=== PATIENT | female | born 1955 | race Caucasian/White ===

== ENCOUNTER 2021-04-01 07:12 | Outpatient (REF) | payer OTHER, SELFPAY ==
[2021-04-01 08:05] LABS: MANUAL DIFF FLAG NO
[2021-04-01 08:16] LABS: Basophils Percent Auto 0.8 % (0-2); Eosinophils Absolute Auto 0.2 X10*3/uL (0.0-0.4); Eosinophils Percent Auto 3.4 % (0-4); Hematocrit 43.8 % (37-47); Hemoglobin 14.9 g/dl (12.0-16.0); Imm Gran Abs Auto 0.01 X10*3/uL (0.00-0.03); Imm Gran Pct Auto 0.2 % (0.0-0.4); Lymphocytes Absolute Auto 1.3 X10*3/uL (1.2-4.9); Lymphocytes Percent Auto 25.8 % (20-40); Mean Corpuscular Hemoglobin 30.3 pg (27.0-33.0); Mean Platelet Volume 9.8 fL (9.4-12.3); Monocytes Absolute Auto 0.5 X10*3/uL (0.1-1.2); Monocytes Percent Auto 9.3 % (2-11); Neutrophils Percent Auto 60.5 % (45-73); Platelet Count 247 X10*3/uL (160-400); Red Blood Count 4.92 X10*6/uL (4.20-5.50); Red Cell Distribution Width 12.2 % (11.0-16.0)
[2021-04-01 08:27] LABS: Alanine Aminotransferase 24 U/L (0-31); Albumin Level 4.6 g/dL (3.5-5.0); Alkaline Phosphatase 47 U/L (39-117); Anion Gap 13 (12-20); Aspartate Amino Transferase 25 U/L (5-31); Bilirubin Total 0.7 mg/dL (0.0-1.0); Blood Urea Nitrogen 14 mg/dL (9-16); Calcium 9.2 mg/dL (8.4-10.2); Carbon Dioxide 24 mmol/L (22-29); Chloride 107 mmol/L (96-108); Cholesterol 246 mg/dL; Estimated Glomerular Filt Rate > 60; Glucose Fasting 115 mg/dL (60-99); HDL Cholesterol 54 mg/dL; LDL Cholesterol Calculated 162 mg/dl; Potassium 4.6 mmol/L (3.3-5.1); Sodium 139 mmol/L (135-145); Total Protein 7.5 g/dL (6.5-8.0); Triglycerides 150 mg/dL
[2021-04-01 08:38] LABS: Glucose Urine UA NEG (NEG); Leukocyte Esterase Urine 2+ (NEG); Nitrite Urine NEG (NEG); PH 6.5 (5.0-8.0); Urine Blood 1+ (NEG); Urine Ketones NEG (NEG); Urine Protein NEG (NEG-TRACE)
[2021-04-01 08:42] LABS: Appearance Urine HAZY; Color Urine YELLOW
[2021-04-01 08:53] LABS: Thyroid Stimulating Hormone 1.63 uIU/mL (0.32-4.0); Vitamin D 25-OH Total 21.3 ng/mL (>30)
[2021-04-01 08:57] LABS: Bacteria Urine 1+ /LPF; Squamous Epithelial Cell Urine 4+ /LPF
== END 2021-04-01 07:13 | disposition home or self-care (01) ==
LOC: HO.LAB 07:12
PROVIDERS: PCP Internal Medicine; Visit Provider Internal Medicine
DX: I10 Essential (primary) hypertension (principal)
CPT/HCPCS: 36415; 80053; 80061; 81001; 82306; 84443; 85025

== ENCOUNTER 2021-10-21 07:34 | Outpatient (REF) | payer OTHER, SELFPAY ==
[2021-10-21 07:54] LABS: MANUAL DIFF FLAG NO
[2021-10-21 08:14] LABS: Basophils Absolute Auto 0.1 X10*3/uL (0.0-0.2); Basophils Percent Auto 1.3 % (0-2); Eosinophils Absolute Auto 0.1 X10*3/uL (0.0-0.4); Eosinophils Percent Auto 3.1 % (0-4); Hemoglobin 14.5 g/dl (12.0-16.0); Imm Gran Abs Auto 0.01 X10*3/uL (0.00-0.03); Imm Gran Pct Auto 0.2 % (0.0-0.4); Lymphocytes Absolute Auto 1.6 X10*3/uL (1.2-4.9); Lymphocytes Percent Auto 35.4 % (20-40); Mean Corpuscular HGB Conc 34.5 g/dl (31.0-35.0); Mean Corpuscular Hemoglobin 30.9 pg (27.0-33.0); Mean Corpuscular Volume 89.4 fL (80.0-98.0); Mean Platelet Volume 9.3 fL (9.4-12.3); Monocytes Absolute Auto 0.5 X10*3/uL (0.1-1.2); Monocytes Percent Auto 9.9 % (2-11); Neutrophils Absolute Auto 2.3 x10*3/uL (2.0-8.3); Neutrophils Percent Auto 50.1 % (45-73); Platelet Count 258 X10*3/uL (160-400); Red Cell Distribution Width 11.9 % (11.0-16.0); White Blood Count 4.6 X10*3/uL (4.8-10.8)
[2021-10-21 08:37] LABS: Alanine Aminotransferase 31 U/L (0-31); Albumin Level 4.6 g/dL (3.5-5.0); Alkaline Phosphatase 48 U/L (39-117); Anion Gap 13 (12-20); Aspartate Amino Transferase 23 U/L (5-31); Bilirubin Total 0.6 mg/dL (0.0-1.0); Blood Urea Nitrogen 12 mg/dL (9-16); Calcium 9.3 mg/dL (8.4-10.2); Carbon Dioxide 23 mmol/L (22-29); Chloride 107 mmol/L (96-108); Cholesterol 262 mg/dL; Estimated Glomerular Filt Rate > 60; Glucose Fasting 114 mg/dL (60-99); HDL Cholesterol 66 mg/dL; LDL Cholesterol Calculated 170 mg/dl; Potassium 4.1 mmol/L (3.3-5.1); Sodium 139 mmol/L (135-145); Total Protein 7.4 g/dL (6.5-8.0); Triglycerides 134 mg/dL
[2021-10-21 09:00] LABS: Vitamin D 25-OH Total 21.6 ng/mL (>30)
[2021-10-21 09:01] LABS: Appearance Urine CLEAR; Color Urine YELLOW; Glucose Urine UA NEG (NEG); Leukocyte Esterase Urine 1+ (NEG); Nitrite Urine NEG (NEG); Specific Gravity - Urine <= 1.005 (1.005-1.025); Urine Blood NEG (NEG); Urine Ketones NEG (NEG); Urine Protein NEG (NEG-TRACE)
[2021-10-21 09:13] LABS: Bacteria Urine TRACE /LPF; RBC Urine 0-2 /HPF (0); Squamous Epithelial Cell Urine 2+ /LPF; WBC Urine 0-2 /HPF (0-4)
== END 2021-10-21 07:35 | disposition home or self-care (01) ==
LOC: HO.LAB 07:34
PROVIDERS: PCP Internal Medicine; Visit Provider Internal Medicine
DX: I10 Essential (primary) hypertension (principal); E78.00 Pure hypercholesterolemia, unspecified
CPT/HCPCS: 36415; 80053; 80061; 81001; 81003; 82306; 85025

== ENCOUNTER 2022-01-15 08:02 | Outpatient (REF) | payer OTHER, SELFPAY ==
--- NOTE | ~2022-01-15 | MM_ITS ---
EXAMINATION: MM SCREENING DIGITAL BREAST TOMOSYNTHESIS, BILATERAL CLINICAL INFORMATION: Screening. Asymptomatic. The lifetime risk of breast cancer based on the Tyrer-Cuzick Model is 6%. COMPARISON: Mammography: 06/05/2019, 05/29/2019, 05/27/2018 TECHNIQUE: Digital breast tomosynthesis is performed in both the craniocaudal and mediolateral oblique views along with computer-aided detection (CAD). Synthesized 2D images are generated from the tomosynthesis. FINDINGS: The breasts are heterogeneously dense, which may obscure small masses (ACR BI-RADS breast composition Category c). There are no significant masses, abnormal calcifications, or other abnormalities. Parenchymal pattern is similar to prior studies. There is no developing density or architectural abnormality. The axilla and skin contours are unremarkable. No significant changes. MM/MM tomosynthesis screening BI IMPRESSION: No mammographic evidence of malignancy. ASSESSMENT: BI-RADS 1: Negative RECOMMENDATION: Routine annual mammography screening. This patient's information was entered into a reminder system with a target due date for their next mammogram.
== END 2022-01-15 08:03 | disposition home or self-care (01) ==
LOC: HO.MAMMO 08:02
PROVIDERS: PCP Internal Medicine; Visit Provider Internal Medicine
DX: Z12.31 Encounter for screening mammogram for malignant neoplasm of breast (principal)
CPT/HCPCS: 77063; 77067

== ENCOUNTER 2022-02-16 06:08 | Day surgery (SDC) | payer OTHER, SELFPAY ==
[2022-02-10 16:39] VITALS: BMI 24.3
--- NOTE | 2022-02-13 08:38 | HO.ANESPROP2 ---
Documented by User: Rozina Villavicencio NP 02/13/22 08:39 HPI - Anesthesia Eval Consult details Narrative: 66yo F for Left Cataract Extraction IOL Insertion PCP cleared No previous cataract on record PMFSH Past Medical History Medical History Anxiety Elevated cholesterol Hemorrhoids HTN (hypertension) Vitamin D deficiency Surgical History Surgical History Hx of colonoscopy Hx of dilation and curettage Hx of tonsillectomy Social History Social History Are you a primary medicare sales executive to a significant other at home: No Do you presently have visiting nurse or other home services: No Patient Tobacco Use Status: Never used Tobacco Use of substances other than those prescribed or required for medical reasons: No Have you been hit, kicked, punched, or otherwise hurt by someone within the past year? If so, by whom?: No Are you DNR?: No Advance Directives: No Advance Directives Information Provided: No Advance Directives on File: No Recently lost weight without trying: No Eating poorly because of decreased appetite: No Nutrition Risks: No Nutritional Risk Patient : No Meds Allergies Allergy/AdvReac Type Severity Reaction Status Date / Time hayfever Allergy Runny Nose Uncoded 02/16/22 06:25 Home Medications Medication Instructions Recorded Confirmed Last Taken Type atorvastatin 10 mg tablet 1 tab PO DAILY 01/13/22 01/13/22 Unknown History cholecalciferol (vitamin D3) 50 1 cap PO DAILY 01/13/22 01/13/22 Unknown History mcg (2,000 unit) capsule diltiazem HCl 120 mg capsule,24 1 cap PO DAILY 01/13/22 01/13/22 02/16/22 05:00 History hr,extended release lorazepam 1 mg tablet 0.5 - 1 tab PO DAILY 01/13/22 01/13/22 02/16/22 05:00 History Exam Exam Date and Time: February 13, 2022 0838 Height,Weight and Vital Signs: Height 5 ft 3 in Weight 62.142 kg Assessment and Plan Assessment Anesthesia Assessment: Chart Reviewed Documented by User: Morgan Richards MD 02/16/22 07:00 [facility] Past Medical History Medical History Anxiety Elevated cholesterol Hemorrhoids HTN (hypertension) Vitamin D deficiency Family History Family history of problems with anesthesia: No Surgical History Surgical History Hx of colonoscopy Hx of dilation and curettage Hx of tonsillectomy History of Problems with Anesthesia: No Social History Social History Are you a primary medicare sales executive to a significant other at home: No Do you presently have visiting nurse or other home services: No Patient Tobacco Use Status: Never used Tobacco Use of substances other than those prescribed or required for medical reasons: No Have you been hit, kicked, punched, or otherwise hurt by someone within the past year? If so, by whom?: No Are you DNR?: No Advance Directives: No Advance Directives Information Provided: No Advance Directives on File: No Recently lost weight without trying: No Eating poorly because of decreased appetite: No Nutrition Risks: No Nutritional Risk Patient : No Meds Allergies Allergy/AdvReac Type Severity Reaction Status Date / Time hayfever Allergy Runny Nose Uncoded 02/16/22 06:25 Home Medications Medication Instructions Recorded Confirmed Last Taken Type atorvastatin 10 mg tablet 1 tab PO DAILY 01/13/22 01/13/22 Unknown History cholecalciferol (vitamin D3) 50 1 cap PO DAILY 01/13/22 01/13/22 Unknown History mcg (2,000 unit) capsule diltiazem HCl 120 mg capsule,24 1 cap PO DAILY 01/13/22 01/13/22 02/16/22 05:00 History hr,extended release lorazepam 1 mg tablet 0.5 - 1 tab PO DAILY 01/13/22 01/13/22 02/16/22 05:00 History Exam Airway Mallampati Class: II TM Dist: >3cm Neck ROM: Full Loose/Missing/Broken Teeth: No Heart: rrr+s1s2 Lungs: cta b/l Assessment and Plan Assessment Anesthesia Assessment: Anesthesia Plan Discussed Final Anesthetic Review Family History of Problems with Anesthesia: No History of Problems with Anesthesia: No NPO: Yes ASA Class: II Final Preanesthetic Review: No Changes in Pt Med Stat, Meds/Allgs Chart Reviewed, Consent Obtained/Reviewed and Anes Risks/Benef Reviewed Patient Risk: Low Procedure Risk: Low Anesthetic Plan Anesthetic Plan: MAC: and Agree w/ Assess. and Plan Disposition: Standard PACU
--- NOTE | 2022-02-13 13:14 | MHC.SHP ---
Pre-Procedural Eval Section A Date of Service: 02/13/22 The patient is an INPATIENT: No Changes since office visit: No Cold of Flu in the past 2 weeks, No New Medical Problems, No Changes in Medication and No Patient answered all questions The History & Physical has been completed within 30 days and I have reviewed it.: Yes Section B Chief Complaint: cataract Allergies: Allergies Allergy/AdvReac Type Severity Reaction Status Date / Time hayfever Allergy Runny Nose Uncoded 02/10/22 16:38 Plan Diagnosis/Plan: Unchanged I have reviewed the history and physical and performed a pertinent physical examination on my patient. No changes have occurred unless specified.
[2022-02-16 06:26] VITALS: BP 160/87; PULSE 93; RESP 16; TEMP 36.8; O2SAT 96
[2022-02-16] MEDS: Tetracaine HCl/PF 0.5% Oph Sol 4 ML DROPS 1 DROP EYE-LEFT (06:32)
[2022-02-16] MEDS: Tropicamide 1 % Ophth Sol 3 ML BTL 1 DROP EYE-LEFT ×3 (06:35→06:45)
[2022-02-16] MEDS: Phenylephrine HCL 2.5% Oph SoL 2 ML BOTTLE 1 DROP EYE-LEFT ×3 (06:38→06:47)
[2022-02-16] MEDS: Lactated Ringers 500 ML 50 ML IV (06:40)
[2022-02-16 08:01] VITALS: BP 123/77; PULSE 73; RESP 16; TEMP 36.4; O2SAT 99
--- NOTE | 2022-02-16 08:03 | HO.PNOPHT ---
Ophthalmology Procedure Procedure Date of Service: 02/16/22 Ophthalmology Viscoelastic: Healkay Duet Dual Pack Pro Ophthalmology Lenses: TECMAIDA [id number] (14) Procedure Notes: PREOPERATIVE DIAGNOSIS: Decreased visual acuity left eye secondary to cataract POSTOPERATIVE DIAGNOSIS: Same PROCEDURE: Left cataract extraction with intraocular lens insertion SURGEON: Bhaskar Sood M.D. ANESTHESIA: Topical/MAC ESTIMATED BLOOD LOSS: None COMPLICATIONS: None After obtaining informed consent, the patient was brought to the operation room suite and placed in the supine position. After adequate sedation per anesthesia, topical drops of Tetracaine were given to the left eye. The eye was then prepped and draped in the usual sterile fashion. The operating room microscope was then positioned over the operative eye and a lid speculum placed. A paracentesis was created. Viscoelastic was then instilled into the anterior chamber. A three plane incision was then created temporally, utilizing a 2.85 mm keratome. Capsulotomy forceps were then utilized to create a circular tear capsulotomy. Hydrodissection and hydrodelineation were carried out until adequate mobilization of the nucleus occurred. Phacoemulsification was then utilized to remove the dense central nucleus followed by removal of the cortical material utilizing the automated aspiration irrigation unit. Viscoat elastic was instilled into the posterior capsular bag followed by placement of a posterior chamber intraocular lens without difficulty. The residual Viscoat elastic was then removed utilizing the automated IA machine. The wound was check and found to be watertight. The patient tolerated the procedure well and the lid speculum was removed. Intracameral injection of Vigamox 0.1 mL followed by a subtenon injection of Kenalog-40 0.2 mL were administered. The patient will be seen in the a.m.
[2022-02-16 08:12] VITALS: BP 139/77; PULSE 80; RESP 16; TEMP 36.4; O2SAT 99
== END 2022-02-16 08:14 | disposition home or self-care (01) ==
PROVIDERS: PCP Internal Medicine; Visit Provider Ophthalmology
PROC: (CPT 66985; principal; 2022-02-16 07:30)
DX: H25.12 Age-related nuclear cataract, left eye (principal); H52.4 Presbyopia; I10 Essential (primary) hypertension; E78.00 Pure hypercholesterolemia, unspecified; Z79.899 Other long term (current) drug therapy
CPT/HCPCS: 66984; J2250; J3010; J3300; V2632

== ENCOUNTER 2022-03-02 05:57 | Day surgery (SDC) | payer OTHER, SELFPAY ==
--- NOTE | 2022-02-26 14:34 | MHC.SHP ---
Pre-Procedural Eval Section A Date of Service: 02/26/22 The patient is an INPATIENT: No Changes since office visit: No Cold of Flu in the past 2 weeks, No New Medical Problems, No Changes in Medication and No Patient answered all questions The History & Physical has been completed within 30 days and I have reviewed it.: Yes Section B Chief Complaint: Age-related nuclear cataract, right eye Allergies: Allergies Allergy/AdvReac Type Severity Reaction Status Date / Time hayfever Allergy Runny Nose Uncoded 02/16/22 06:25 Plan Diagnosis/Plan: Unchanged I have reviewed the history and physical and performed a pertinent physical examination on my patient. No changes have occurred unless specified.
--- NOTE | 2022-02-27 10:22 | HO.ANESPROP2 ---
Documented by User: Rozina Villavicencio NP 02/27/22 10:23 HPI - Anesthesia Eval Consult details Narrative: 66yo F for Right Cataract Extraction IOL Insertion PCP cleared Left eye 02/16/22 with MAC: Fent 50, Midaz 2 [facility] Past Medical History Medical History Anxiety Elevated cholesterol Hemorrhoids HTN (hypertension) Vitamin D deficiency Family History Family history of problems with anesthesia: No Surgical History Surgical History (Updated 02/25/22 @ 08:22 by Janie Page, RN) History of left cataract extraction Hx of colonoscopy Hx of dilation and curettage Hx of tonsillectomy History of Problems with Anesthesia: No Social History Social History Are you a primary care administrative tech to a significant other at home: No Do you presently have visiting nurse or other home services: No Patient Tobacco Use Status: Never used Tobacco Are you DNR?: No Advance Directives: No Advance Directives Information Provided: Yes Meds Allergies Allergy/AdvReac Type Severity Reaction Status Date / Time hayfever Allergy Runny Nose Uncoded 02/16/22 06:25 Home Medications Medication Instructions Recorded Confirmed Last Taken Type atorvastatin 10 mg tablet 1 tab PO DAILY 01/13/22 02/25/22 Unknown History cholecalciferol (vitamin D3) 50 1 cap PO DAILY 01/13/22 02/25/22 Unknown History mcg (2,000 unit) capsule diltiazem HCl 120 mg capsule,24 1 cap PO DAILY 01/13/22 02/25/22 03/02/22 History hr,extended release lorazepam 1 mg tablet 0.5 - 1 tab PO DAILY 01/13/22 02/25/22 02/16/22 05:00 History Exam Exam Date and Time: February 27, 2022 1022 Assessment and Plan Assessment Anesthesia Assessment: Chart Reviewed Final Anesthetic Review Family History of Problems with Anesthesia: No History of Problems with Anesthesia: No Documented by User: Morgan Richards MD 03/02/22 07:13 [facility] Past Medical History Medical History Anxiety Elevated cholesterol Hemorrhoids HTN (hypertension) Vitamin D deficiency Surgical History Surgical History (Updated 02/25/22 @ 08:22 by Janie Page, RN) History of left cataract extraction Hx of colonoscopy Hx of dilation and curettage Hx of tonsillectomy Social History Social History Are you a primary care administrative tech to a significant other at home: No Do you presently have visiting nurse or other home services: No Patient Tobacco Use Status: Never used Tobacco Are you DNR?: No Advance Directives: No Advance Directives Information Provided: Yes Meds Allergies Allergy/AdvReac Type Severity Reaction Status Date / Time hayfever Allergy Runny Nose Uncoded 02/16/22 06:25 Home Medications Medication Instructions Recorded Confirmed Last Taken Type atorvastatin 10 mg tablet 1 tab PO DAILY 01/13/22 02/25/22 Unknown History cholecalciferol (vitamin D3) 50 1 cap PO DAILY 01/13/22 02/25/22 Unknown History mcg (2,000 unit) capsule diltiazem HCl 120 mg capsule,24 1 cap PO DAILY 01/13/22 02/25/22 03/02/22 History hr,extended release lorazepam 1 mg tablet 0.5 - 1 tab PO DAILY 01/13/22 02/25/22 02/16/22 05:00 History Exam Airway Mallampati Class: II TM Dist: >3cm Neck ROM: Full Loose/Missing/Broken Teeth: No Heart: rrr+s1s2 Lungs: cta b/l Assessment and Plan Assessment Anesthesia Assessment: Anesthesia Plan Discussed Final Anesthetic Review NPO: Yes ASA Class: II Final Preanesthetic Review: No Changes in Pt Med Stat, Meds/Allgs Chart Reviewed, Consent Obtained/Reviewed and Anes Risks/Benef Reviewed Patient Risk: Intermediate Procedure Risk: Low Assessment/Block/Sedation in SS: Assess/Block/Sedation-SS Anesthetic Plan Anesthetic Plan: MAC: and Agree w/ Assess. and Plan Disposition: Standard PACU
[2022-03-02 06:17] VITALS: BP 144/69; PULSE 84; RESP 18; TEMP 36.1; O2SAT 97; BMI 23.9
[2022-03-02] MEDS: Tropicamide 1 % Ophth Sol 3 ML BTL 1 DROP EYE-RIGHT ×3 (06:24→06:27)
[2022-03-02] MEDS: Tetracaine HCl/PF 0.5% Oph Sol 4 ML DROPS 1 DROP EYE-RIGHT (06:24)
[2022-03-02] MEDS: Phenylephrine HCL 2.5% Oph SoL 2 ML BOTTLE 1 DROP EYE-RIGHT ×3 (06:25→06:27)
[2022-03-02] MEDS: Lactated Ringers 500 ML 50 ML IV (06:25)
[2022-03-02 08:04] VITALS: BP 146/70; PULSE 73; RESP 13; TEMP 36.8; O2SAT 97
--- NOTE | 2022-03-02 08:05 | HO.PNOPHT ---
Ophthalmology Procedure Procedure Date of Service: 03/02/22 Ophthalmology Viscoelastic: Marcela Tavarezt Dual Pack Pro Ophthalmology Lenses: TECMAIDA [id number] (14) Procedure Notes: PREOPERATIVE DIAGNOSIS: Decreased visual acuity right eye secondary to cataract POSTOPERATIVE DIAGNOSIS: Same PROCEDURE: Right cataract extraction with intraocular lens insertion SURGEON: Bhaskar Sood M.D. ANESTHESIA: Topical/MAC ESTIMATED BLOOD LOSS: None COMPLICATIONS: None After obtaining informed consent, the patient was brought to the operating room suite and placed in the supine position. After adequate sedation per anesthesia, topical drops of Tetracaine were given to the right eye. The eye was then prepped and draped in the usual sterile fashion. The operating room microscope was then positioned over the operative eye and a lid speculum placed. A paracentesis was created. Viscoelastic was then instilled into the anterior chamber. A three plane incision was then created temporally, utilizing a 2.85 mm keratome. Capsulotomy forceps were then utilized to create a circular tear capsulotomy. Hydrodissection and hydrodelineation were carried out until adequate mobilization of the nucleus occurred. Phacoemulsification was then utilized to remove the dense central nucleus followed by removal of the cortical material utilizing the automated aspiration irrigation unit. Viscoelastic was instilled into the posterior capsular bag followed by placement of a posterior chamber intraocular lens without difficulty. The residual Viscoelastic was then removed utilizing the automated IA machine. The wound was checked and found to be watertight. The patient tolerated the procedure well and the lid speculum was removed. Intracameral injection of Vigamox 0.1 mL followed by a subtenon injection of Kenalog-40 0.2 mL were administered. The patient will be seen in the a.m.
[2022-03-02 08:17] VITALS: BP 142/69; PULSE 71; RESP 18; TEMP 36.8; O2SAT 98
== END 2022-03-02 08:19 | disposition home or self-care (01) ==
PROVIDERS: PCP Internal Medicine; Visit Provider Ophthalmology
PROC: (CPT 66985; principal; 2022-03-02 07:30)
DX: H25.11 Age-related nuclear cataract, right eye (principal); H52.4 Presbyopia; H35.09 Other intraretinal microvascular abnormalities; Z83.511 Family history of glaucoma; Z83.518 Family history of other specified eye disorder; I10 Essential (primary) hypertension; E55.9 Vitamin D deficiency, unspecified; E78.00 Pure hypercholesterolemia, unspecified; Z79.899 Other long term (current) drug therapy
CPT/HCPCS: 66984; J3010; J3300; V2632

== ENCOUNTER 2022-04-06 12:32 | Emergency (ER) | payer OTHER, SELFPAY ==
[2022-04-06 12:42] VITALS: BP 175/83; PULSE 86; RESP 18; TEMP 36.4; O2SAT 98; BMI 24.3
== END 2022-04-06 16:41 | disposition left against medical advice (07) ==
PROVIDERS: Emergency Provider Emergency Medicine; PCP Internal Medicine
DX: R42 Dizziness and giddiness (principal); R53.1 Weakness
CPT/HCPCS: 99281; 99282

== ENCOUNTER 2022-04-08 13:55 | Outpatient (REF) | payer OTHER, SELFPAY ==
[2022-04-08 14:12] LABS: MANUAL DIFF FLAG NO
[2022-04-08 14:35] LABS: Basophils Absolute Auto 0.1 X10*3/uL (0.0-0.2); Basophils Percent Auto 0.8 % (0-2); Eosinophils Absolute Auto 0.1 X10*3/uL (0.0-0.4); Eosinophils Percent Auto 0.8 % (0-4); Hematocrit 41.9 % (37.0-47.0); Hemoglobin 14.6 g/dl (12.0-16.0); Imm Gran Abs Auto 0.01 X10*3/uL (0.00-0.03); Imm Gran Pct Auto 0.2 % (0.0-0.4); Lymphocytes Absolute Auto 1.7 X10*3/uL (1.2-4.9); Lymphocytes Percent Auto 27.6 % (20-40); Mean Corpuscular HGB Conc 34.8 g/dl (31.0-35.0); Mean Corpuscular Hemoglobin 30.8 pg (27.0-33.0); Mean Corpuscular Volume 88.4 fL (80.0-98.0); Mean Platelet Volume 9.6 fL (9.4-12.3); Monocytes Absolute Auto 0.6 X10*3/uL (0.1-1.2); Monocytes Percent Auto 8.7 % (2-11); Neutrophils Absolute Auto 3.9 x10*3/uL (2.0-8.3); Neutrophils Percent Auto 61.9 % (45-73); Platelet Count 271 X10*3/uL (160-400); Red Blood Count 4.74 X10*6/uL (4.20-5.50); Red Cell Distribution Width 11.9 % (11.0-16.0); White Blood Count 6.3 X10*3/uL (4.8-10.8)
[2022-04-08 15:00] LABS: Alanine Aminotransferase 20 U/L (0-31); Albumin Level 4.7 g/dL (3.5-5.0); Alkaline Phosphatase 49 U/L (39-117); Anion Gap 13 (12-20); Aspartate Amino Transferase 23 U/L (5-31); Bilirubin Total 0.6 mg/dL (0.0-1.0); Blood Urea Nitrogen 13 mg/dL (9-16); Calcium 10.2 mg/dL (8.4-10.2); Carbon Dioxide 25 mmol/L (22-29); Chloride 103 mmol/L (96-108); Estimated Glomerular Filt Rate > 60; Glucose Random 104 mg/dL (60-115); Sodium 137 mmol/L (135-145); Total Protein 7.9 g/dL (6.5-8.0)
[2022-04-08 15:21] LABS: Thyroid Stimulating Hormone 1.79 uIU/mL (0.32-4.0)
== END 2022-04-08 13:56 | disposition home or self-care (01) ==
LOC: HO.LAB 13:55
PROVIDERS: PCP Internal Medicine; Visit Provider Internal Medicine
DX: I10 Essential (primary) hypertension (principal); E78.00 Pure hypercholesterolemia, unspecified; F41.1 Generalized anxiety disorder; R42 Dizziness and giddiness; R29.818 Other symptoms and signs involving the nervous system
CPT/HCPCS: 36415; 80053; 84443; 85025

== ENCOUNTER 2022-05-13 07:52 | Outpatient (RCR) | payer OTHER, SELFPAY ==
[2022-05-13 08:16] VITALS: BP 184/106; PULSE 75
== END 2022-10-26 12:42 | disposition home or self-care (01) ==
LOC: HO.PT 07:52
PROVIDERS: PCP Internal Medicine; Visit Provider Internal Medicine
DX: R29.818 Other symptoms and signs involving the nervous system (principal)
CPT/HCPCS: 97163

== ENCOUNTER 2022-05-13 09:19 | Emergency (ER) | payer OTHER, SELFPAY ==
--- NOTE | ~2022-05-13 | XR_ITS ---
EXAMINATION: XR CHEST CLINICAL INFORMATION: Hypertension. Chest discomfort. COMPARISON: Previous chest x-ray January 2018 TECHNIQUE: 2 views of the chest were obtained. FINDINGS: No significant abnormality is noted involving the heart, lungs, mediastinum, bony thorax or soft tissues. XR/XR chest 2V IMPRESSION: Unremarkable examination.
--- NOTE | 2022-05-13 09:20 | ECG_ITS ---
Test Reason : chest pain/ tightness Blood Pressure : / mmHG Vent. Rate : 093 BPM Atrial Rate : 093 BPM P-R Int : 172 ms QRS Dur : 080 ms QT Int : 366 ms P-R-T Axes : 052 012 049 degrees QTc Int : 455 ms Sinus rhythm with Premature ventricular complexes or Fusion complexes Nonspecific ST abnormality Abnormal ECG When compared to the previous EKG of No significant changes seen Referred By: Generic ED Physician Electronically Signed By:ARIEL PÉREZ MD
[2022-05-13 09:27] VITALS: BP 190/100; PULSE 94; RESP 18; TEMP 36.1; O2SAT 98; BMI 24.3
[2022-05-13 09:43] LABS: Basophils Percent Auto 0.8 % (0-2); Eosinophils Percent Auto 0.8 % (0-4); Hematocrit 41.9 % (37.0-47.0); Hemoglobin 14.5 g/dl (12.0-16.0); Imm Gran Abs Auto 0.02 X10*3/uL (0.00-0.03); Imm Gran Pct Auto 0.5 % (0.0-0.4); Lymphocytes Absolute Auto 1.3 X10*3/uL (1.2-4.9); Lymphocytes Percent Auto 33.2 % (20-40); MANUAL DIFF FLAG NO; Mean Corpuscular HGB Conc 34.6 g/dl (31.0-35.0); Mean Corpuscular Hemoglobin 30.7 pg (27.0-33.0); Mean Corpuscular Volume 88.6 fL (80.0-98.0); Mean Platelet Volume 9.3 fL (9.4-12.3); Monocytes Absolute Auto 0.4 X10*3/uL (0.1-1.2); Monocytes Percent Auto 9.3 % (2-11); Neutrophils Absolute Auto 2.1 x10*3/uL (2.0-8.3); Neutrophils Percent Auto 55.4 % (45-73); Platelet Count 211 X10*3/uL (160-400); Red Blood Count 4.73 X10*6/uL (4.20-5.50); White Blood Count 3.8 X10*3/uL (4.8-10.8)
--- NOTE | 2022-05-13 09:46 | ED.GENADULT ---
HPI - General Adult General Chief complaint: General Medical Stated complaint: high blood pressure chest thightness Time Seen by Provider: 05/13/22 09:37 Source: patient Mode of arrival: ambulatory Limitations: no limitations History of Present Illness HPI narrative: 66 y/o female with history of HTN on diltiazem 180 mg daily, vertigo, and anxiety who presents to the ER with high blood pressure from physical therapy. She reports a baseline BP with a wide range anywhere from 130-150s/80-90's at home. She also reports that her BP increases with anxiety and then she has to go places with new people. It is higher when she is at the doctors as well. She is due to meet with her PCP to discuss her BP management but he is out sick. PT sent her home to follow up with him but she was unable to get in so she came to the ER. She reports a brief chest tightness that occurs at baseline when I have enough stress. No headache, vision changes, SOB. She took her ativan for anxiety today. She also took her diltiazem and never misses a dose. MD complaint: high blood pressure Onset (ago): unknown Location: chest Radiation: non-radiation Severity: mild Severity scale (1-10): 3 Quality: other (tightness) Pain Consistency: intermittent and now resolved Relieving factors: rest Exacerbating factors: other (stress) Associated symptoms: denies other symptoms Treatments prior to arrival: none Related Data Home Medications Medication Instructions Recorded Confirmed atorvastatin 10 mg tablet 1 tab PO DAILY 01/13/22 02/25/22 cholecalciferol (vitamin D3) 50 1 cap PO DAILY 01/13/22 02/25/22 mcg (2,000 unit) capsule diltiazem HCl 120 mg capsule,24 1 cap PO DAILY 01/13/22 02/25/22 hr,extended release lorazepam 1 mg tablet 0.5 - 1 tab PO DAILY 01/13/22 02/25/22 Allergies Allergy/AdvReac Type Severity Reaction Status Date / Time hayfever Allergy Runny Nose Uncoded 02/16/22 06:25 Review of Systems Review of Systems: Constitutional: No Fever, No Chills ENT/Mouth: No sore throat, No Rhinorrhea, No Swallowing Difficulty Eyes: No Eye Pain, No Swelling, No Redness Cardiovascular: + Chest Pain, No SOB, No Orthopnea, No Edema Respiratory: No Cough, No Sputum, No Wheezing, No dyspnea Gastrointestinal: No Nausea, No Vomiting, No Diarrhea, No abdominal Pain Genitourinary: No Dysuria, No Urinary Frequency, No Hematuria Musculoskeletal: No joint pain, No Myalgias Skin: No Skin Lesions, No rash Neuro: No Weakness, No Numbness, No Dizziness, No Headache Psych: + Anxiety/Panic, No Depression Heme/Lymph: No Bruising, No Lymphadenopathy Endocrine: No Polyuria, No Polydipsia [facility] Past Medical History Medical History (Updated 05/13/22 @ 11:50 by LINN San) Anxiety Elevated cholesterol Hemorrhoids HTN (hypertension) Vitamin D deficiency Surgical History History of left cataract extraction Hx of colonoscopy Hx of dilation and curettage Hx of tonsillectomy Social History Social History Are you a primary adult day care worker to a significant other at home: No Do you presently have visiting nurse or other home services: No Alcohol intake: current Alcohol intake frequency: 0-2 drinks per day Alcohol type: wine Patient Tobacco Use Status: Never used Tobacco Use of substances other than those prescribed or required for medical reasons: No Advance Directives: No Advance Directives Information Provided: No Physical Exam ED Vital Signs: Vital Signs - 24 hr 05/13/22 09:27 05/13/22 10:04 05/13/22 11:01 Temperature 97 F 98.1 F 97.9 F Pulse Rate 94 89 74 Respiratory Rate 18 22 H 14 Blood Pressure 190/100 H 183/87 H 157/82 H Pulse Oximetry 98 98 97 Oxygen Delivery Method Room Air Room Air Room Air BMI result Body Mass Index 24.3 Appearance: Alert. Oriented X3. No acute distress. Eyes: Pupils equal, round and reactive to light. ENT: Pharynx normal. Neck: Normal inspection. Neck supple. CVS: Normal heart rate and rhythm. Pulses normal. Respiratory: No respiratory distress. Breath sounds normal. Abdomen: Soft and nontender. +BS x4 Skin: Skin warm and dry. Normal skin color. Normal skin turgor. No rashes. Extremities: No lower extremity edema. Neuro: Oriented X 3. No motor deficit. No sensory deficit. Course Course Course Narrative: 66 y/o female with history of HTN, anxiety, vertigo presents with high blood pressure. BP 190/100 on arrival. Nonfocal neuro exam and she appears well. She took her Cardizem this morning. No current chest pain. Her description of the chest pains sound atypical and have been going on for a long time. Will check EKG and troponin to r/o ACS although clinical suspicion is low. Reevaluation(s) Reevaluation #1: BP trended down on its own. UA without protein. Troponin negative. She is stable for discharge home with plan to follow up with her PCP. Medical Decision Making Lab Data Result diagrams: 05/13/22 09:35 05/13/22 09:35 Labs: Lab Results 05/13/22 05/13/22 05/13/22 Range/Units 09:35 09:35 09:35 WBC 3.8 L (4.8-10.8) X10*3/uL RBC 4.73 (4.20-5.50) X10*6/uL Hgb 14.5 (12.0-16.0) g/dl Hct 41.9 (37.0-47.0) % MCV 88.6 (80.0-98.0) fL MCH 30.7 (27.0-33.0) pg MCHC 34.6 (31.0-35.0) g/dl RDW 12.0 (11.0-16.0) % Plt Count 211 (160-400) X10*3/uL MPV 9.3 L (9.4-12.3) fL Immature Gran % (Auto) 0.5 H (0.0-0.4) % Neut % (Auto) 55.4 (45-73) % Lymph % (Auto) 33.2 (20-40) % Piatt % (Auto) 9.3 (2-11) % Eos % (Auto) 0.8 (0-4) % Baso % (Auto) 0.8 (0-2) % Lymph # (Auto) 1.3 (1.2-4.9) X10*3/uL Piatt # (Auto) 0.4 (0.1-1.2) X10*3/uL Eos # (Auto) 0.0 (0.0-0.4) X10*3/uL Baso # (Auto) 0.0 (0.0-0.2) X10*3/uL Abs Immat Gran (auto) 0.02 (0.00-0.03) X10*3/uL Absolute Neuts (auto) 2.1 (2.0-8.3) x10*3/uL Absolute Nucleated RBC 0.000 (0.0-0.012) X10*3/uL Nucleated RBC % (auto) 0.0 (0.0-0.2) /100WBC Sodium 137 (135-145) mmol/L Potassium 4.7 (3.3-5.1) mmol/L Chloride 103 (96-108) mmol/L Carbon Dioxide 24 (22-29) mmol/L Anion Gap 15 (12-20) BUN 12 (9-16) mg/dL Creatinine 0.73 (0.5-1.4) mg/dL Estim Creat Clear Calc 64.3 Estimated GFR > 60 Random Glucose 164 H (60-115) mg/dL Calcium 9.3 D (8.4-10.2) mg/dL Troponin I High Sens < 3.5 (<3.5-17.0) ng/L Urine Color Urine Appearance Urine pH (5.0-8.0) Ur Specific [place] (1.005-1.025) Urine Protein (NEG-TRACE) MG/DL Urine Glucose (UA) (NEG) MG/DL Urine Ketones (NEG) MG/DL Urine Blood (NEG) Urine Nitrite (NEG) Ur Leukocyte Esterase (NEG) Urine RBC (0) /HPF Urine WBC (0-4) /HPF Ur Squamous Epith Cells /LPF Urine Bacteria /LPF 05/13/22 Range/Units 10:58 WBC (4.8-10.8) X10*3/uL RBC (4.20-5.50) X10*6/uL Hgb (12.0-16.0) g/dl Hct (37.0-47.0) % MCV (80.0-98.0) fL MCH (27.0-33.0) pg MCHC (31.0-35.0) g/dl RDW (11.0-16.0) % Plt Count (160-400) X10*3/uL MPV (9.4-12.3) fL Immature Gran % (Auto) (0.0-0.4) % Neut % (Auto) (45-73) % Lymph % (Auto) (20-40) % Piatt % (Auto) (2-11) % Eos % (Auto) (0-4) % Baso % (Auto) (0-2) % Lymph # (Auto) (1.2-4.9) X10*3/uL Piatt # (Auto) (0.1-1.2) X10*3/uL Eos # (Auto) (0.0-0.4) X10*3/uL Baso # (Auto) (0.0-0.2) X10*3/uL Abs Immat Gran (auto) (0.00-0.03) X10*3/uL Absolute Neuts (auto) (2.0-8.3) x10*3/uL Absolute Nucleated RBC (0.0-0.012) X10*3/uL Nucleated RBC % (auto) (0.0-0.2) /100WBC Sodium (135-145) mmol/L Potassium (3.3-5.1) mmol/L Chloride (96-108) mmol/L Carbon Dioxide (22-29) mmol/L Anion Gap (12-20) BUN (9-16) mg/dL Creatinine (0.5-1.4) mg/dL Estim Creat Clear Calc Estimated GFR Random Glucose (60-115) mg/dL Calcium (8.4-10.2) mg/dL Troponin I High Sens (<3.5-17.0) ng/L Urine Color STRAW Urine Appearance HAZY Urine pH 6.5 (5.0-8.0) Ur Specific [place] <= 1.005 (1.005-1.025) Urine Protein NEG (NEG-TRACE) MG/DL Urine Glucose (UA) NEG (NEG) MG/DL Urine Ketones NEG (NEG) MG/DL Urine Blood TRACE (NEG) Urine Nitrite NEG (NEG) Ur Leukocyte Esterase NEG (NEG) Urine RBC 0-2 (0) /HPF Urine WBC 0 (0-4) /HPF Ur Squamous Epith Cells TRACE /LPF Urine Bacteria NONE /LPF ECG Data Attestation: I personally reviewed and interpreted this ECG as follows: Prior ECG tracings: available for review Interpretation: sinus rhythm, with PVCs, artifact present, no ST segment elevations or depressions Critical Care Time Critical Care Time Critical Care Time: No Discharge Plan Discharge Clinical Impression: Hypertension Patient Disposition: Home, Self-Care Additional Instructions: Your lab workup today was unremarkable. Recommend monitoring your BP at home and keeping track for your doctor. If your develop chest pain, headaches or dizziness associated with elevated BP call 911 or come back to the ER for evaluation. Prescriptions: No Action atorvastatin 10 mg tablet 1 tab PO DAILY diltiazem HCl 120 mg capsule,extended release 24 hr 1 cap PO DAILY lorazepam 1 mg tablet 0.5 - 1 tab PO DAILY cholecalciferol (vitamin D3) 50 mcg (2,000 unit) capsule 1 cap PO DAILY Referrals: Hermilo Case DO [Primary Care Provider] - (HTN, anxiety)
[2022-05-13 09:55] LABS: Anion Gap 15 (12-20); Blood Urea Nitrogen 12 mg/dL (9-16); Calcium 9.3 mg/dL (8.4-10.2); Carbon Dioxide 24 mmol/L (22-29); Chloride 103 mmol/L (96-108); Creatinine Clr Calc Pharmacy 64.3; Estimated Glomerular Filt Rate > 60; Glucose Random 164 mg/dL (60-115); Potassium 4.7 mmol/L (3.3-5.1); Sodium 137 mmol/L (135-145)
[2022-05-13 10:02] LABS: Troponin-I High Sensitivity < 3.5 ng/L (<3.5-17.0)
[2022-05-13 10:04] VITALS: BP 183/87; PULSE 89; RESP 22; TEMP 36.7; O2SAT 98
[2022-05-13 11:01] VITALS: BP 157/82; PULSE 74; RESP 14; TEMP 36.6; O2SAT 97
[2022-05-13 11:24] LABS: Appearance Urine HAZY; Color Urine STRAW; Glucose Urine UA NEG (NEG); Leukocyte Esterase Urine NEG (NEG); Nitrite Urine NEG (NEG); PH 6.5 (5.0-8.0); Specific Gravity - Urine <= 1.005 (1.005-1.025); UACC Culture Trigger NO; Urine Blood TRACE (NEG); Urine Ketones NEG (NEG); Urine Protein NEG (NEG-TRACE)
[2022-05-13 11:33] LABS: RBC Urine 0-2 /HPF (0); Squamous Epithelial Cell Urine TRACE /LPF; WBC Urine 0 /HPF (0-4)
[2022-05-13 12:16] VITALS: BP 191/99; PULSE 79; RESP 20; TEMP 37; O2SAT 96
== END 2022-05-13 12:17 | disposition home or self-care (01) ==
PROVIDERS: Physician Assistant; Emergency Provider Emergency Medicine; PCP Internal Medicine
DX: I10 Essential (primary) hypertension (principal); Z79.899 Other long term (current) drug therapy
CPT/HCPCS: 36415; 71046; 80048; 81001; 84484; 85025; 93005; 99283; 99284

== ENCOUNTER 2022-07-11 07:26 | Outpatient (REF) | payer OTHER, SELFPAY ==
[2022-07-11 08:11] LABS: C Reactive Protein 0.21 mg/dL (< or = 0.50)
[2022-07-11 12:17] LABS: Erythrocyte Sedimentation Rate 5 MM/HR (0-20)
[2022-07-14 08:42] LABS: Anti Nuclear Antibody Screen NEGATIVE (NEGATIVE)
== END 2022-07-11 07:27 | disposition home or self-care (01) ==
LOC: HO.LAB 07:26
PROVIDERS: PCP Internal Medicine; Visit Provider Internal Medicine
DX: I10 Essential (primary) hypertension (principal); E78.00 Pure hypercholesterolemia, unspecified; F41.1 Generalized anxiety disorder
CPT/HCPCS: 36415; 85652; 86038; 86039; 86140

== ENCOUNTER 2022-11-04 14:18 | Outpatient (REF) | payer MEDICARE, SELFPAY ==
--- NOTE | ~2022-11-04 | XR_ITS ---
EXAMINATION: XR CHEST CLINICAL INFORMATION: Cough COMPARISON: Previous chest x-ray April 2022 TECHNIQUE: 2 views of the chest were obtained. FINDINGS: No significant abnormality is noted involving the heart, lungs, mediastinum, bony thorax or soft tissues. XR/XR chest 2V IMPRESSION: Unremarkable examination.
[2022-11-04 14:38] LABS: MANUAL DIFF FLAG NO
[2022-11-04 15:03] LABS: Basophils Absolute Auto 0.1 X10*3/uL (0.0-0.2); Basophils Percent Auto 0.8 % (0-2); Eosinophils Absolute Auto 0.1 X10*3/uL (0.0-0.4); Eosinophils Percent Auto 1.3 % (0-4); Hematocrit 44.6 % (37.0-47.0); Hemoglobin 15.2 g/dl (12.0-16.0); Imm Gran Abs Auto 0.03 X10*3/uL (0.00-0.03); Imm Gran Pct Auto 0.4 % (0.0-0.4); Lymphocytes Percent Auto 23.6 % (20-40); Mean Corpuscular HGB Conc 34.1 g/dl (31.0-35.0); Mean Corpuscular Hemoglobin 29.5 pg (27.0-33.0); Mean Corpuscular Volume 86.4 fL (80.0-98.0); Mean Platelet Volume 9.7 fL (9.4-12.3); Monocytes Absolute Auto 0.8 X10*3/uL (0.1-1.2); Monocytes Percent Auto 9.1 % (2-11); Neutrophils Absolute Auto 5.6 x10*3/uL (2.0-8.3); Neutrophils Percent Auto 64.8 % (45-73); Platelet Count 332 X10*3/uL (160-400); Red Blood Count 5.16 X10*6/uL (4.20-5.50); Red Cell Distribution Width 12.6 % (11.0-16.0); White Blood Count 8.6 X10*3/uL (4.8-10.8)
[2022-11-04 15:31] LABS: Alanine Aminotransferase 22 U/L (0-31); Alkaline Phosphatase 53 U/L (39-117); Anion Gap 14 (12-20); Aspartate Amino Transferase 24 U/L (5-31); Bilirubin Total 0.6 mg/dL (0.0-1.0); Blood Urea Nitrogen 15 mg/dL (9-16); Carbon Dioxide 25 mmol/L (22-29); Chloride 105 mmol/L (96-108); Estimated Glomerular Filt Rate 60; Glucose Random 116 mg/dL (60-115); Sodium 140 mmol/L (135-145); Total Protein 7.9 g/dL (6.5-8.0)
== END 2022-11-04 14:19 | disposition home or self-care (01) ==
LOC: HO.XRAY 14:18
PROVIDERS: PCP Internal Medicine; Visit Provider Internal Medicine
DX: R05.9 Cough, unspecified (principal)
CPT/HCPCS: 36415; 71046; 80053; 85025; 86140

== ENCOUNTER 2023-09-21 07:50 | Outpatient (REF) | payer MEDICARE, SELFPAY ==
[2023-09-21 08:00] LABS: MANUAL DIFF FLAG NO
[2023-09-21 08:38] LABS: Basophils Percent Auto 0.8 % (0-2); Eosinophils Absolute Auto 0.1 X10*3/uL (0.0-0.4); Eosinophils Percent Auto 3.5 % (0-4); Hematocrit 43.2 % (37.0-47.0); Hemoglobin 14.8 g/dl (12.0-16.0); Imm Gran Abs Auto 0.01 X10*3/uL (0.00-0.03); Imm Gran Pct Auto 0.3 % (0.0-0.4); Lymphocytes Absolute Auto 1.5 X10*3/uL (1.2-4.9); Lymphocytes Percent Auto 36.8 % (20-40); Mean Corpuscular HGB Conc 34.3 g/dl (31.0-35.0); Mean Corpuscular Hemoglobin 30.8 pg (27.0-33.0); Mean Platelet Volume 9.5 fL (9.4-12.3); Monocytes Absolute Auto 0.5 X10*3/uL (0.1-1.2); Monocytes Percent Auto 12.3 % (2-11); Neutrophils Absolute Auto 1.8 x10*3/uL (2.0-8.3); Neutrophils Percent Auto 46.3 % (45-73); Platelet Count 217 X10*3/uL (160-400); Red Cell Distribution Width 12.1 % (11.0-16.0)
[2023-09-21 09:14] LABS: Alanine Aminotransferase 29 U/L (0-31); Albumin Level 4.7 g/dL (3.5-5.0); Alkaline Phosphatase 42 U/L (39-117); Anion Gap 15 (12-20); Aspartate Amino Transferase 26 U/L (5-31); Bilirubin Total 0.6 mg/dL (0.0-1.0); Blood Urea Nitrogen 13 mg/dL (9-16); Calcium 9.7 mg/dL (8.4-10.2); Carbon Dioxide 25 mmol/L (22-29); Chloride 105 mmol/L (96-108); Cholesterol 283 mg/dL (<200); Estimated Glomerular Filt Rate > 60; Glucose Fasting 109 mg/dL (60-99); HDL Cholesterol 67 mg/dL (>40); LDL Cholesterol Calculated 191 mg/dL (<100); Potassium 4.1 mmol/L (3.3-5.1); Sodium 141 mmol/L (135-145); Total Protein 7.6 g/dL (6.5-8.0); Triglycerides 129 mg/dL (<150)
[2023-09-21 09:33] LABS: TSH reflex Free T4 2.97 uIU/mL (0.32-4.0); Vitamin D 25-OH Total 24.6 ng/mL (>30)
== END 2023-09-21 07:51 | disposition home or self-care (01) ==
LOC: HO.LAB 07:50
PROVIDERS: PCP Internal Medicine; Visit Provider Internal Medicine
DX: I10 Essential (primary) hypertension (principal); E78.00 Pure hypercholesterolemia, unspecified; E55.9 Vitamin D deficiency, unspecified
CPT/HCPCS: 36415; 80053; 80061; 82306; 84443; 85025

== ENCOUNTER 2023-10-07 07:41 | Outpatient (REF) | payer MEDICARE, SELFPAY ==
--- NOTE | ~2023-10-07 | US_ITS ---
EXAMINATION: US THYROID CLINICAL INFORMATION: Nodular thyroid disease. COMPARISON: None available. TECHNIQUE: Linear transducer grayscale and color Doppler examination with attention to the region of the thyroid. FINDINGS: SIZE: Measurements of the thyroid lobes and nodules are given in sagittal, anteroposterior and transverse dimensions respectively. Right Thyroid Lobe: 4.96 x 2.48 x 1.44 cm, volume 9.29 mL. Parenchyma: The gland echotexture is heterogeneous. Thyroid vascularity is increased. Left Thyroid Lobe: 4.57 x 3.16 x 2.18 cm, volume 16.5 mL. Parenchyma: The gland echotexture is heterogeneous. Thyroid vascularity is increased. Isthmus: 0.49 cm in maximum AP dimension. Estimated total number of nodules greater than or equal to 1 cm: 2. Mattress Maker nodules are described as follows: 1. Location: Left inferior. Size: 2.1 x 1.2 x 2.1 cm, volume 2.8 mL. Nodule characteristics: Composition: Mixed cystic and solid (1). Echogenicity: Isoechoic (1). Shape: Not taller than wide (0). Margins: Smooth (0). Echogenic Foci: None (0). ACR TI-RADS total points: 2 ACR TI-RADS category: 2 2. Location: Left inferior. Size: 2.8 x 1.7 x 1.6 cm, volume 4.0 mL. Nodule characteristics: Composition: Solid/almost completely solid (2). Echogenicity: Isoechoic (1). Shape: Taller than wide (3). Margins: Smooth (0). Echogenic Foci: None (0). ACR TI-RADS total points: 6 ACR TI-RADS category: 4 NODES: No lymphadenopathy is seen in the tissue surrounding the thyroid gland. US/US thyroid IMPRESSION: A 2.8 cm TR 4 left inferior thyroid nodule which meets criteria for tissue sampling. A 2.1 cm TR 2 the left inferior thyroid nodule which does not meet criteria for follow-up. Heterogeneous and hypervascular thyroid which can be seen in the setting of thyroiditis. ACR TI-RADS RECOMMENDATION REFERENCE: Ultrasound-guided fine-needle aspiration, followup ultrasound, no further follow up. * TR1 (0 point) and TR2 (2 points): No FNA or follow up. * TR3 (3 points): FNA if more than or equal to 2.5 cm in maximum dimension, followup ultrasound in 1, 3 and 5 years if 1.5 to 2.4 cm in maximum dimension. * TR4 (4-6 points): FNA if more than or equal to 1.5 cm in maximum dimension, followup ultrasound in 1, 2, 3 and 5 years if 1 to 1.4 cm in maximum dimension. * TR5 (more than or equal to 7 points): FNA if more than or equal to 1 cm in maximum dimension, followup ultrasound every year for 5 years if 0.5 to 0.9 cm in maximum dimension. * TR3, TR4 or TR5 nodules that are below the size threshold for followup receive no follow up.
== END 2023-10-07 07:42 | disposition home or self-care (01) ==
LOC: HO.US 07:41
PROVIDERS: PCP Internal Medicine; Visit Provider Internal Medicine
DX: E04.1 Nontoxic single thyroid nodule (principal)
CPT/HCPCS: 76536

== ENCOUNTER 2023-10-20 07:59 | Outpatient (REF) | payer MEDICARE, SELFPAY | END 2023-10-20 08:00 | disposition home or self-care (01) | LOC: HO.MAMMO 07:59 | PROVIDERS: PCP Internal Medicine; Visit Provider Internal Medicine | DX: Z12.31 Encounter for screening mammogram for malignant neoplasm of breast (principal) | CPT/HCPCS: 77063; 77067 ==

== ENCOUNTER → 2023-10-20 08:15 | Outpatient (BNV) | payer MEDICARE, SELFPAY | PROVIDERS: PCP Internal Medicine; Visit Provider Radiology Diagnostic Radiology | DX: Z12.31 Encounter for screening mammogram for malignant neoplasm of breast (principal) | CPT/HCPCS: 77063; 77067 ==

== ENCOUNTER 2023-12-15 12:48 | Outpatient (REF) | payer MEDICARE, SELFPAY ==
--- NOTE | ~2023-12-15 | US_ITS ---
ULTRASOUND-GUIDED THYROID NODULE FINE NEEDLE ASPIRATION INDICATION: Left lobe thyroid nodule TR2 Left lobe thyroid nodule TR 5 PROCEDURE: Informed consent was obtained from the patient prior to the procedure. During this process, the procedure and potential alternatives were explained, along with the intended outcome and benefits. The risks of the procedure, as well as the risks of not doing the procedure, were discussed. The patient was given the opportunity to ask questions regarding the procedure and appeared competent to make medical decisions. A signed consent form which documents this discussion was placed in the medical record. A timeout was performed in the room. The patient was placed in a supine position with the neck extended. The left side of the neck and chest was prepped and draped in routine sterile fashion. 1% lidocaine was used as anesthetic. Under real-time ultrasound guidance, a 25-gauge needle was placed into the each nodule and aspiration was performed. A total of 3 aspirations were performed per nodule. The specimens were placed in CytoLyt and and the Affirma bottle. Postprocedure images showed no hematoma. A Band-Aid was applied to the access site. The patient tolerated the procedure well with no immediate complications. Permanent ultrasound images were archived to the procedure. US/US biopsy thyroid IMPRESSION: Left thyroid nodule fine-needle aspiration x 2 This procedure was performed by Boaz Goodrich PA-C, and directly supervised by Dr. Meade
== END 2023-12-15 12:49 | disposition home or self-care (01) ==
LOC: HO.US 12:48
PROVIDERS: PCP Internal Medicine; Visit Provider Internal Medicine Endocrinology, Diabetes & Metabolism
DX: E04.1 Nontoxic single thyroid nodule (principal)
CPT/HCPCS: 10005; 88173; 88305

== ENCOUNTER → 2023-12-15 12:50 | Outpatient (BNV) | payer MEDICARE, SELFPAY | PROVIDERS: PCP Internal Medicine; Visit Provider Radiology Diagnostic Radiology | DX: E04.2 Nontoxic multinodular goiter (principal) | CPT/HCPCS: 10005; 10006 ==

== ENCOUNTER 2024-10-23 07:57 | Outpatient (REF) | payer MEDICARE, SELFPAY ==
--- NOTE | ~2024-10-23 | MM_ITS ---
EXAMINATION: MM SCREENING DIGITAL BREAST TOMOSYNTHESIS, BILATERAL CLINICAL INFORMATION: Screening. Asymptomatic. COMPARISON: Mammography: Comparison is made with available priors TECHNIQUE: Digital breast mammography with tomosynthesis is performed in both the craniocaudal and mediolateral oblique views along with computer-aided detection (CAD). FINDINGS: The breasts are heterogeneously dense, which may obscure small masses (ACR BI-RADS breast composition Category c). There are no significant masses, abnormal calcifications, or other abnormalities. MM/MM tomosynthesis screening BI IMPRESSION: No mammographic evidence of malignancy. ASSESSMENT: BI-RADS BI-RADS 1 - Negative RECOMMENDATION: Routine annual mammography screening. 1 year F/U This examination should not preclude the clinical evaluation of a suspicious palpable abnormality. This patient's information was entered into a reminder system with a target due date for their next mammogram. Electronically signed by: Arely Payton DO 11/01/2024 12:22 PM KYRIE
== END 2024-10-23 07:58 | disposition home or self-care (01) ==
LOC: HO.MAMMO 07:57
PROVIDERS: PCP Internal Medicine; Visit Provider Internal Medicine
DX: Z12.31 Encounter for screening mammogram for malignant neoplasm of breast (principal)
CPT/HCPCS: 36415; 77063; 77067; 80048; 80061; 84443; 85025

== ENCOUNTER → 2024-10-23 08:15 | Outpatient (BNV) | payer MEDICARE, SELFPAY | PROVIDERS: PCP Internal Medicine; Visit Provider Internal Medicine | DX: Z12.31 Encounter for screening mammogram for malignant neoplasm of breast (principal) | CPT/HCPCS: 77063; 77067 ==

== ENCOUNTER 2024-10-23 08:37 | Outpatient (REF) | payer MEDICARE, SELFPAY ==
[2024-10-23 08:53] LABS: MANUAL DIFF FLAG NO
[2024-10-23 09:15] LABS: Basophils Percent Auto 1.1 % (0-2); Eosinophils Absolute Auto 0.1 X10*3/uL (0.0-0.4); Eosinophils Percent Auto 3.7 % (0-4); Hemoglobin 14.3 g/dl (12.0-16.0); Imm Gran Abs Auto 0.03 X10*3/uL (0.00-0.03); Imm Gran Pct Auto 0.8 % (0.0-0.4); Lymphocytes Absolute Auto 1.3 X10*3/uL (1.2-4.9); Lymphocytes Percent Auto 36.1 % (20-40); Mean Corpuscular HGB Conc 34.9 g/dl (31.0-35.0); Mean Corpuscular Hemoglobin 31.2 pg (27.0-33.0); Mean Corpuscular Volume 89.3 fL (80.0-98.0); Mean Platelet Volume 9.3 fL (9.4-12.3); Monocytes Absolute Auto 0.4 X10*3/uL (0.1-1.2); Monocytes Percent Auto 10.4 % (2-11); Neutrophils Absolute Auto 1.7 x10*3/uL (2.0-8.3); Neutrophils Percent Auto 47.9 % (45-73); Platelet Count 219 X10*3/uL (160-400); Red Blood Count 4.59 X10*6/uL (4.20-5.50); White Blood Count 3.6 X10*3/uL (4.8-10.8)
[2024-10-23 09:51] LABS: Anion Gap 11 (12-20); Blood Urea Nitrogen 11 mg/dL (9-16); Carbon Dioxide 25 mmol/L (22-29); Chloride 104 mmol/L (96-108); Cholesterol 267 mg/dL (<200); Estimated Glomerular Filt Rate > 60; Glucose Fasting 112 mg/dL (60-99); HDL Cholesterol 58 mg/dL (>40); LDL Cholesterol Calculated 187 mg/dL (<100); Potassium 3.8 mmol/L (3.3-5.1); Sodium 136 mmol/L (135-145); Triglycerides 114 mg/dL (<150)
[2024-10-23 10:05] LABS: Thyroid Stimulating Hormone 1.82 uIU/mL (0.32-4.0)
== END 2024-10-23 08:38 | disposition home or self-care (01) ==
LOC: HO.LAB 08:37
PROVIDERS: PCP Internal Medicine; Visit Provider Internal Medicine
DX: Z13.89 Encounter for screening for other disorder (principal)
CPT/HCPCS: 36415; 80048; 80061; 84443; 85025

== ENCOUNTER 2024-12-13 09:34 | Emergency (ER) | payer MEDICARE, SELFPAY ==
--- NOTE | ~2024-12-13 | CT_ITS ---
EXAMINATION: CT ABDOMEN AND PELVIS WITHOUT CONTRAST CLINICAL INFORMATION: Abdominal pain. Flank pain. COMPARISON: None available. TECHNIQUE: Multidetector volumetric imaging was performed from the superior aspect of the liver through the pubic symphysis. Sagittal and coronal reformatted images were obtained on the technologist's workstation. This CT examination was performed using dose optimization techniques as appropriate, variously including the following: *Automated exposure control *Adjustment of mA and/or kV according to patient size (this includes techniques or standardized protocols for targeted exams where dose is matched to indication/reason for exam; i.e. extremities or head) *Use of iterative reconstruction technique DLP: 461 mGy centimeter. FINDINGS: Limited examination of the intra-abdominal organs and vascular structures due to lack of IV contrast. LUNG BASES: Nonspecific 2 mm noncalcified pulmonary nodule in the periphery of the right middle lobe. LIVER, GALLBLADDER, AND BILIARY TREE: Liver measures 17 cm with decreased attenuation. There are 2 lobulated low density lesions in the right hepatic lobe measuring 2.9 and 1.4 cm. Gallbladder is fluid-filled nondistended without pericholecystic fluid collection or gallbladder wall thickening. No intrahepatic or extrahepatic biliary ductal dilatation. PANCREAS: No peripancreatic fluid collections. No main pancreatic ductal dilatation. SPLEEN: 9 cm. ADRENAL GLANDS: No nodular lesions. KIDNEYS AND URETERS: No hydronephrosis. No nephrolithiasis or Probable parapelvic cyst, left kidney. BLADDER: Fluid-filled nearly collapsed with questionable wall thickening. GASTROINTESTINAL TRACT: Appendix is normal. Fecal material in the terminal ileum. Abundant stool within the large intestine mostly the right hemicolon and transverse colon. No intestinal obstruction pattern. No pneumatosis intestinalis. No pneumoperitoneum. No ascites. ABDOMINAL WALL: Small fat-containing umbilical hernia LYMPH NODES: Nonspecific prominent lymph nodes, mesenteric and retroperitoneum. VASCULAR: Calcified plaques throughout the abdominal aorta wall and iliac arteries without aneurysm. PELVIC VISCERA: Inadequate evaluation OSSEOUS STRUCTURES: Osteopenia versus osteoporosis. S-shaped curvature of the lumbar spine. Multilevel spondylosis more conspicuous at L2-3. Facet joint hypertrophy at L5-S1. CT/CT abdomen pelvis wo IV con IMPRESSION: No hydronephrosis or nephrolithiasis. Probable parapelvic cyst, left kidney. Hepatomegaly with the likely and steatosis. Cystic lesions, hepatic. Fleischner guidelines were followed. Electronically signed by: Rufino Stanley MD 12/13/2024 11:59 AM EST
[2024-12-13 09:56] VITALS: BP 154/84; PULSE 99; RESP 18; TEMP 36.4; O2SAT 98; BMI 26.0
--- OUTSIDE RECORDS SUMMARY | 2024-12-13 10:15 | XMS_ITS | Continuity of Care Document ---
Author Organization [facility] [address] [place] [address] Phone [phone] Care Team Providers Care Dock Attendant Name Role Phone Hermilo Case M.D. Care Team Information Recei harriet [phone] Problems Active Problems Provider Date Essential hypertension LINN Bahena Onset: 11/08/2023 Hypercholesterolemia LINN Bahena Onset: 1 01/09/2023 Vitamin D deficiency LINN Bahena Onset: 1 01/09/2023 Anxiety LINN Bahena Onset: 2022 Social History Type Date Description Comments Sex Unknown Work Status Retired Tobacco Use Start: Unknown Never Smoked Cigarettes ETOH Use Rarely consumes alcohol Allergies and adverse reactions Description No Known Drug Allergies Medications Active Medications SIG Qnty Indications Ordering Provider Date [id number] Tablets Take 1/2 To 1 Tablet By Mouth Once Daily as Needed Daphney Peter MD Diltiazem HCL ER [id number] Caps ER 24HR Take 1 Capsule By Mouth Every Day Hermilo Case M.D. 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 E06.3 Autoimmune thyroidit is Assessments Date Code Description Provider 11/08/2023 E04.2 Nontoxic multinodular goiter LINN Bahena 11/08/2023 E04.2 Nontoxic multinodular goiter LINN Bahena 11/08/2023 E06.3 Autoimmune thyroiditis LINN Durand 11/08/2023 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
[2024-12-13 10:22] LABS: MANUAL DIFF FLAG NO
[2024-12-13 10:24] LABS: Basophils Absolute Auto 0.1 X10*3/uL (0.0-0.2); Basophils Percent Auto 0.5 % (0-2); Eosinophils Percent Auto 0.2 % (0-4); Hematocrit 41.5 % (37.0-47.0); Hemoglobin 14.7 g/dl (12.0-16.0); Imm Gran Abs Auto 0.03 X10*3/uL (0.00-0.03); Imm Gran Pct Auto 0.2 % (0.0-0.4); Lymphocytes Absolute Auto 1.3 X10*3/uL (1.2-4.9); Lymphocytes Percent Auto 10.4 % (20-40); Mean Corpuscular HGB Conc 35.4 g/dl (31.0-35.0); Mean Corpuscular Hemoglobin 30.8 pg (27.0-33.0); Mean Corpuscular Volume 86.8 fL (80.0-98.0); Monocytes Absolute Auto 0.7 X10*3/uL (0.1-1.2); Monocytes Percent Auto 5.7 % (2-11); Neutrophils Absolute Auto 10.1 x10*3/uL (2.0-8.3); Platelet Count 250 X10*3/uL (160-400); Red Blood Count 4.78 X10*6/uL (4.20-5.50); Red Cell Distribution Width 12.1 % (11.0-16.0); White Blood Count 12.2 X10*3/uL (4.8-10.8)
[2024-12-13 10:25] LABS: Appearance Urine Clear; Color Urine Yellow; Glucose Urine UA Negative (Negative); Leukocyte Esterase Urine Large (3+) (Negative); Nitrite Urine Negative (Negative); Specific Gravity - Urine <= 1.005 (1.005-1.025); UMIC TRIGGER UACC YES; Urine Blood Moderate (2+) (Negative); Urine Ketones Negative (Negative); Urine Protein 30 (1+) mg/dL (Neg-Trace)
[2024-12-13 10:39] LABS: Alanine Aminotransferase 27 U/L (0-31); Albumin Level 4.5 g/dL (3.5-5.0); Alkaline Phosphatase 51 U/L (39-117); Anion Gap 11 (12-20); Aspartate Amino Transferase 24 U/L (5-31); Bilirubin Total 0.6 mg/dL (0.0-1.0); Blood Urea Nitrogen 9 mg/dL (9-16); Calcium 9.4 mg/dL (8.4-10.2); Carbon Dioxide 25 mmol/L (22-29); Chloride 108 mmol/L (96-108); Creatinine Clr Calc Pharmacy 75.8; Estimated Glomerular Filt Rate > 60; Glucose Random 120 mg/dL (60-115); Potassium 4.1 mmol/L (3.3-5.1); Sodium 140 mmol/L (135-145); Total Protein 7.8 g/dL (6.5-8.0)
[2024-12-13 10:40] LABS: Bacteria Urine Trace (None Seen); Hyaline Casts Urine 0-2 /LPF (0-2); Squamous Epithelial Cell Urine 0-2 /HPF (0-2); UACC Culture Trigger YES; WBC Urine >50 /HPF (0-5)
[2024-12-13] MEDS: 0.9 % Sodium Chloride 1,000 ML 999 ML IV (11:09)
[2024-12-13] MEDS: Ketorolac Tromethamine 15 MG/ML VIAL IVPUSH (11:10)
--- NOTE | 2024-12-13 11:19 | PC.NURSE ---
NO BC ordered for patient, confirmed w/ provider before giving abx, provider ordered BC, abx on hold until drawn.
--- OUTSIDE RECORDS SUMMARY | 2024-12-13 11:25 | XMS_ITS | Continuity of Care Document ---
Author Organization [facility] [address] [place] [address] Phone [phone] Care Team Providers Care Retarder Operator Name Role Phone Hermilo Case M.D. Care Team Information Recei harriet [phone] Problems Active Problems Provider Date Essential hypertension [...] Medications SIG Qnty Indications Ordering Provider Date [id number] Tablets Take 1/2 To 1 Tablet By Mouth Once Daily as Needed Daphney Peter MD Diltiazem HCL ER [id number] Caps ER 24HR Take 1 Capsule By [...]
--- NOTE | 2024-12-13 11:48 | ED.ABDPAIN ---
HPI - Abdominal Pain General Chief Complaint: Abdominal Pain Stated Complaint: ? Kidney Stone Time Seen by Provider: 12/13/24 10:39 Source: patient Mode of arrival: ambulatory Limitations: no limitations History of Present Illness HPI narrative: 69-year-old female past medical history of hyperlipidemia hypertension anxiety and UTIs. Presents emergency department complaining of with left flank pain symptoms started 3 days ago while walking her dogs symptoms have resolved and been intermittent since then she has no history of kidney stones last night she had to urinate every few minutes just a little bit of amount and comes in because iris MENDENHALL elicited complaint: flank pain Related Data Home Medications ?Medication ?Instructions ?Recorded ?Confirmed atorvastatin 10 mg tablet 1 tab PO DAILY 01/13/22 02/25/22 cholecalciferol (vitamin D3) 50 1 cap PO DAILY 01/13/22 02/25/22 mcg (2,000 unit) capsule diltiazem HCl 120 mg capsule,24 1 cap PO DAILY 01/13/22 02/25/22 hr,extended release lorazepam 1 mg tablet 0.5 - 1 tab PO DAILY 01/13/22 02/25/22 Previous Rx's ?Medication ?Instructions ?Recorded cefuroxime axetil 500 mg tablet 500 mg PO BID 7 days #14 tabs 12/13/24 Allergies Allergy/AdvReac Type Severity Reaction Status Date / Time hayfever Allergy Runny Nose Uncoded 12/13/24 09:59 Review of Systems Review of Systems Review of systems: General: Patient denies any fever chills recent illness or falls Musculoskeletal: Denies back pain or body aches or other injuries HEENT: denies headache, runny nose, ear pain Respiratory: denies shortness of breath, cough Cardiovascular: no chest pain or palpitations : dysuria, frequency Abdomen: no nausea vomiting denies abdominal pain Extremities: no swelling, no pain Skin: no diaphoresis Yes all other systems are reviewed and are negative [facility] Past Medical History Medical History (Updated 12/13/24 @ 12:20 by Kieran Paiz DO) Hemorrhoids Vitamin D deficiency Anxiety Elevated cholesterol HTN (hypertension) Surgical History History of left cataract extraction Hx of dilation and curettage Hx of tonsillectomy Hx of colonoscopy Social History Social History Are you a primary animal caregiver to a significant other at home: No Do you presently have visiting nurse or other home services: No Alcohol intake: current Alcohol intake frequency: 0-2 drinks per day Alcohol type: wine Patient Tobacco Use Status: Never used Tobacco Smoked in Last 30 Days: No Use of substances other than those prescribed or required for medical reasons: No Advance Directives: No Advance Directives Information Provided: Yes Do you have a plan to hurt others: No Plan Physical Exam ED Vital Signs: Vital Signs - 24 hr 12/13/24 09:56 12/13/24 12:00 Temperature 97.6 F Pulse Rate 99 87 Respiratory Rate 18 16 Blood Pressure 154/84 H 157/88 H Pulse Oximetry 98 95 Oxygen Delivery Method Room Air Room Air BMI result Body Mass Index 26.0 General: Well-appearing well-nourished in no signs of distress HEENT: Normocephalic atraumatic Neck: No signs of JVD, no masses no tenderness or lymphadenopathy Cardiovascular: Regular rate and rhythm Respiratory: Clear to auscultation bilaterally Abdomen: Soft nontender no masses no CVA tenderness Extremities: Normal pedal pulses no signs of edema Skin: Dry warm no rashes Back: No tenderness full ROM Medical Decision Making Medical Decision Making MDM Narrative: Patient looks well has no altered mental status I think this is likely UTI did give dose of Rocephin his urine came back infected she has had some red blood cells was sent for a CT to rule out kidney stone I did give Toradol her pain is well controlled at this time. Differential Diagnosis Differential Diagnoses: The differential diagnosis associated with the presentation includes Kidney stone pyelonephritis abdominal pain dehydration UTI Lab Data [facility] Lab Attestation statement: I reviewed the patient's lab results. 12/13/24 10:14 12/13/24 10:14 Labs: Lab Results 12/13/24 Range/Units 10:14 WBC 12.2 H (4.8-10.8) X10*3/uL RBC 4.78 (4.20-5.50) X10*6/uL Hgb 14.7 (12.0-16.0) g/dl Hct 41.5 (37.0-47.0) % MCV 86.8 (80.0-98.0) fL MCH 30.8 (27.0-33.0) pg MCHC 35.4 H (31.0-35.0) g/dl RDW 12.1 (11.0-16.0) % Plt Count 250 (160-400) X10*3/uL MPV 9.0 L (9.4-12.3) fL Immature Gran % (Auto) 0.2 (0.0-0.4) % Neut % (Auto) 83.0 H (45-73) % Lymph % (Auto) 10.4 L (20-40) % Gove % (Auto) 5.7 (2-11) % Eos % (Auto) 0.2 (0-4) % Baso % (Auto) 0.5 (0-2) % Lymph # (Auto) 1.3 (1.2-4.9) X10*3/uL Gove # (Auto) 0.7 (0.1-1.2) X10*3/uL Eos # (Auto) 0.0 (0.0-0.4) X10*3/uL Baso # (Auto) 0.1 (0.0-0.2) X10*3/uL Abs Immat Gran (auto) 0.03 (0.00-0.03) X10*3/uL Absolute Neuts (auto) 10.1 H (2.0-8.3) x10*3/uL Absolute Nucleated RBC 0.000 (0.0-0.012) X10*3/uL Nucleated RBC % (auto) 0.0 (0.0-0.2) /100WBC Sodium 140 (135-145) mmol/L Potassium 4.1 (3.3-5.1) mmol/L Chloride 108 (96-108) mmol/L Carbon Dioxide 25 (22-29) mmol/L Anion Gap 11 L (12-20) BUN 9 (9-16) mg/dL Creatinine 0.66 (0.5-1.4) mg/dL Estim Creat Clear Calc 75.8 Estimated GFR > 60 Random Glucose 120 H (60-115) mg/dL Calcium 9.4 (8.4-10.2) mg/dL Total Bilirubin 0.6 (0.0-1.0) mg/dL AST 24 (5-31) U/L ALT 27 (0-31) U/L Alkaline Phosphatase 51 (39-117) U/L Total Protein 7.8 (6.5-8.0) g/dL Albumin 4.5 (3.5-5.0) g/dL Urine Color Yellow Urine Appearance Clear Urine pH 7.0 (5.0-9.0) Ur Specific [place] <= 1.005 (1.005-1.025) Urine Protein 30 (1+) H (Neg-Trace) mg/dL Urine Glucose (UA) Negative (Negative) mg/dL Urine Ketones Negative (Negative) mg/dL Urine Blood Moderate (2+) H (Negative) Urine Nitrite Negative (Negative) Ur Leukocyte Esterase Large (3+) H (Negative) Urine RBC 3-5 H (0-2) /HPF Urine WBC >50 H (0-5) /HPF Ur Squamous Epith Cells 0-2 (0-2) /HPF Urine Bacteria Trace (None Seen) Hyaline Casts 0-2 (0-2) /LPF Independent Interpretation I performed an independent interpretation of an: CT Scan Medications Administered Discontinued Medications Generic Name Dose Route Start Last Admin Trade Name Freq PRN Reason Stop Dose Admin Ceftriaxone Sodium 1 gm 12/13/24 10:51 12/13/24 11:59 Ceftriaxone Sodium 1 Gm Vial IVPUSH 12/13/24 10:52 1 gm ONCE ONE Administration Sodium Chloride 1,000 mls @ 999 mls/hr 12/13/24 11:00 12/13/24 11:09 Ns IV 12/13/24 12:00 999 mls/hr .Q1H1M JESSY Administration Ketorolac Tromethamine 15 mg 12/13/24 10:51 12/13/24 11:10 Ketorolac Tromethamine 15 Mg/Ml Vial IVPUSH 12/13/24 10:52 15 mg ONCE ONE Administration Discharge Plan Discharge Clinical Impression: Acute UTI Patient Disposition: Home, Self-Care Instructions: Urinary Tract Infection in Women (DC) Additional Instructions: you were seen today in the emergency department for left flank pain and found to have a bladder infection. You had CT and labs done which were otherwise normal. Please take the antibiotics as prescribed if you have any other Prescriptions: New cefuroxime axetil 500 mg tablet 500 mg PO BID 7 Days Qty: 14 0RF No Action atorvastatin 10 mg tablet 1 tab PO DAILY diltiazem HCl 120 mg capsule,extended release 24 hr 1 cap PO DAILY lorazepam 1 mg tablet 0.5 - 1 tab PO DAILY cholecalciferol (vitamin D3) 50 mcg (2,000 unit) capsule 1 cap PO DAILY Print Language: Occitan
[2024-12-13] MEDS: cefTRIAXone sodium 1 GM VIAL IVPUSH (11:59)
[2024-12-13 12:00] VITALS: BP 157/88; PULSE 87; RESP 16; O2SAT 95
[2024-12-13 12:58] VITALS: BP 157/88; PULSE 76; RESP 16; TEMP 36.6; O2SAT 95
== END 2024-12-13 12:45 | disposition home or self-care (01) ==
PROVIDERS: Emergency Provider Student in an Organized Health Care Education/Training Program; PCP Internal Medicine
DX: N39.0 Urinary tract infection, site not specified (principal); R10.2 Pelvic and perineal pain; I10 Essential (primary) hypertension; Z79.899 Other long term (current) drug therapy
CPT/HCPCS: 36415; 74176; 80053; 81001; 85025; 87040; 87086; 87088; 87186; 99285; J0696; J1885

== ENCOUNTER → 2024-12-13 10:39 | Outpatient (BNV) | payer MEDICARE, SELFPAY | PROVIDERS: Emergency Provider Student in an Organized Health Care Education/Training Program; PCP Internal Medicine; Visit Provider Radiology Diagnostic Radiology | DX: R10.9 Unspecified abdominal pain (principal) | CPT/HCPCS: 74176 ==

== ENCOUNTER 2025-02-27 09:27 | Outpatient (AMB) | payer MEDICARE, SELFPAY ==
--- NOTE | 2025-02-27 09:31 | A.OFFPC_ITS ---
Vital Signs 02/27/25 09:39 Height 5 ft 4.5 in Weight 146 lb BMI 24.7 BP 152/90 H Blood Pressure Location Lt brachial Pulse 87 Pulse Source Pulse Oximeter Temp 97.9 F Pulse Oximetry (%) 98 Intake Visit Reasons: follow up Intake Note: would like to talk about her thyroid, gets dizzy when she goes to the dentist or the occupational therapy department chair when they lay her back. Allergies hayfever Allergy (Uncoded 02/27/25 10:14) Runny Nose Medication List - Last Reconciled 02/27/25 by Svetlana Garcia PA-C cholecalciferol (vitamin D3) 1 cap PO DAILY diltiazem HCl CD 180 mg PO DAILY lorazepam 0.5 - 1 tabs PO DAILY valsartan 40 mg PO DAILY PFSH Medical History (Updated 02/27/25 @ 10:51 by Svetlana Garcia PA-C) Alissa thyroiditis Uterine fibroid Mild hypercholesterolemia History of mammogram (~10/23/24) Hemorrhoids Vitamin D deficiency Anxiety Elevated cholesterol HTN (hypertension) Surgical History History of left cataract extraction Hx of dilation and curettage Hx of tonsillectomy Hx of colonoscopy (~2009) Social History Are you a primary transitions rn care coordinator to a significant other at home: No Do you presently have visiting nurse or other home services: No Alcohol intake: current Alcohol intake frequency: 0-2 drinks per day Alcohol type: wine Patient Tobacco Use Status: Never used Tobacco Questionnaire PHQ-9 Over the last 2 weeks, how often have you been bothered by any of the following problems? 1. Little interest or pleasure in doing things: not at all 2. Feeling down, depressed, or hopeless: not at all 3. Trouble falling or staying asleep, or sleeping too much: several days 4. Feeling tired or having little energy: several days 5. Poor appetite or overeating: not at all 6. Feeling bad about yourself - or that you are a failure or have let yourself or your family down: not at all 7. Trouble concentrating on things, such as reading the newspaper or watching television: not at all 8. Moving or speaking so slowly that other people could have noticed. Or the opposite - being so fidgety or restless that you have been moving around a lot more than usual: several days 9. Thoughts that you would be better off or of hurting yourself in some way: not at all Total score: 3 Depression Screening Interpretation: Negative Depression Screening Done: Yes 30572 - PHQ-9 Billing: Yes Source: Developed by Drs. Hermilo Ornelas, Aline Gabriel, Mathew Sauer and colleagues, with an educational meredith from [employer]. Thrive Questionnaire Date Thrive assessed: 02/27/25 I am a: Patient What is your living situation today?: I have a steady place to live Within the past 12 months, did the food you bought not last and you didn't have the money to get more?: Never true Do you have trouble paying for medicines?: No Do you have trouble paying your heating and electricity bill?: No Do you have trouble taking care of your child, family member or friend?: No Do you have trouble with day-to-day activities such as bathing, preparing meals, shopping, managing finances, etc.?: No Are you currently unemployed and looking for a job?: No Are you interested in more education?: No THRIVE Score: 0 AUDIT C Alcohol Use Questionnaire (AUDIT-C) 1. How often do you have a drink containing alcohol?: 2-4 times a month 3. How often do you have six or more drinks on one occasion?: Never Total Score: 2 Score Reviewed/Action Taken: No KATELYNN-7 AMB Questionnaire KATELYNN-7 Date KATELYNN - 7 assessed: 02/27/25 Feeling nervous, anxious, or on edge: 2 = More than half the days Not being able to stop or control worryin = Several days Worrying too much about different things: 1 = Several days Trouble relaxin = Several days Being so restless that it is hard to sit still: 0 = Not at all Becoming easily annoyed or irritable: 0 = Not at all Feeling afraid as if something awful might happen: 0 = Not at all Total KATELYNN-7 score (0-4 normal; 5-9 mild; 10-14 moderate; 15-21 severe): 5 Source: Developed by Drs. Hermilo Ornelas, Aline Gabriel, Mathew Sauer and colleagues, with an educational meredith from [employer]. KATELYNN-7 Assessment Billing KATELYNN-7 Assessment Tool: KATELYNN-7 Assessment 22634 Physical exam (Primary Care) Vital Signs: Last Vital Signs Temp 97.9 F 02/27/25 09:39 Pulse 87 02/27/25 09:39 BP 152/90 H 02/27/25 09:39 Pulse Ox 98 02/27/25 09:39 Care Plan Goal for BP management: <130/80 valsartan 40 mg will be added to the patient's diltiazem 180 mg daily extended release regimen and patient to follow up in 1 month for blood pressure recheck BMI result Body Mass Index 24.7 Normal bmi Tobacco/Smoking Status: Tobacco use Status Patient Tobacco Use Status Never used Tobacco 02/27/25 09:31 PHQ-9: PHQ-9 Score PHQ-9: Total score 3 02/27/25 10:12 Depression Screening Interpretation: Negative Thrive Assessment: Date of Thrive Assessment Date Thrive assessed 02/27/25 02/27/25 09:45 Coding Level of Care Code New Pt Level 4 (50296) Complex EM visit Add On G2211 Diagnoses Dizziness R42 HTN (hypertension) I10 Alissa thyroiditis E06.3 Vitamin D deficiency E55.9 Mild hypercholesterolemia E78.00 Anxiety F41.9 Uterine fibroid D25.9 Additional Codes KATELYNN-7 Assessment Billing - KATELYNN-7 Assessment Tool: KATELYNN-7 Assessment 30199 ([id number]) PHQ-9 - 93526 - PHQ-9 Billing: Yes ([id number]) Assessment & Plan Assessment & Plan (1) Dizziness: Code(s): R42 - Dizziness and giddiness Category: Medical Plan: A carotid ultrasound and CT scan are scheduled to investigate potential structural causes for dizziness episodes linked to reclining positions. Emphasis was placed on the non-urgency yet importance of diagnostic clarity. (2) HTN (hypertension): Code(s): I10 - Essential (primary) hypertension Category: Medical Plan: The plan includes augmenting the existing Diltiazem treatment with Valsartan 40 mg to address ongoing high blood pressure. Home monitoring will capture more data for a subsequent review in one month to evaluate effectiveness. (3) Alissa thyroiditis: Code(s): E06.3 - Autoimmune thyroiditis Category: Medical Plan: Comprehensive thyroid function tests were ordered, and arrangements include sharing results with her mechanical maintenance engineer for potential management updates. (4) Vitamin D deficiency: Code(s): E55.9 - Vitamin D deficiency, unspecified Category: Medical Plan: Patient to continue vitamin-D supplement daily. Condition is chronic and stable continue to monitor. (5) Mild hypercholesterolemia: Code(s): E78.00 - Pure hypercholesterolemia, unspecified Category: Medical Plan: Total cholesterol goal less than 200. Triglyceride goal less than 150. LDL goal <100. HDL go greater than 40. Patient had labs on 10/23/2024 revealed total cholesterol 267, triglyceride 114, LDL 187, HDL 58. Patient declining being on statin due to adverse effects. Continuing fish oil supplements in light of statin intolerance is the interim dietary management until cholesterol levels can be rechecked. (6) Anxiety: Code(s): F41.9 - Anxiety disorder, unspecified Category: Medical Plan: Continuing with lorazepam for symptom management was discussed, and non- pharmacological strategies were highlighted, though the patient is not currently pursuing these options. (7) Uterine fibroid: Code(s): D25.9 - Leiomyoma of uterus, unspecified Category: Medical Plan: Condition is chronic and stable will continue to monitor. Plan Plan Patient was informed and verbally consented to the use of an ambient scribe for clinic note documentation during this visit. 1. Essential Hypertension The plan includes augmenting the existing Diltiazem treatment with Valsartan 40 mg to address ongoing high blood pressure. Home monitoring will capture more data for a subsequent review in one month to evaluate effectiveness. 2. Vertigo A carotid ultrasound and CT scan are scheduled to investigate potential structural causes for dizziness episodes linked to reclining positions. Emphasis was placed on the non-urgency yet importance of diagnostic clarity. 3. Alissa's Thyroiditis Comprehensive thyroid function tests were ordered, and arrangements include sharing results with her mechanical maintenance engineer for potential management updates. 4. Urinary Tract Infection History Of Episode management was noted as concluded with no ongoing symptoms, and patient awareness for recurrence signs was reinforced. 5. Hypercholesterolemia Continuing fish oil supplements in light of statin intolerance is the interim dietary management until cholesterol levels can be rechecked. 6. Anxiety Disorder Continuing with lorazepam for symptom management was discussed, and non- pharmacological strategies were highlighted, though the patient is not currently pursuing these options. Discussion Notes During today's visit, I discussed with the patient the ongoing management of her hypertension, exploring escalating treatment with Valsartan due to insufficient control via existing medication. I informed her about the potential cardi ovascular risks associated with unmanaged hypertension and the need for consistent monitoring. We also discussed her episodic dizziness, and I explained the purpose of scheduled imaging tests, including a carotid ultrasound and CT scan, to rule out structural causes. The patient was advised about managing her anxiety related to thyroid issues. I addressed statin intolerance and recommended the continuation of fish oil as an alternative cholesterol-lowering measure. Follow-up for thyroid testing was scheduled to ensure coordinated care with her mechanical maintenance engineer. Copies of today's discussions and recommendations will aid collaborative efforts towards her comprehensive care plan. Orders: Orders Magnesium Today Z00.00 - Encounter for general adult medical examination without abnormal findings Vitamin D 25-OH Total Today Z00.00 - Encounter for general adult medical examination without abnormal findings TSH reflex Free T4 Today Z00.00 - Encounter for general adult medical examination without abnormal findings Parathyroid Hormone Intact Today Z00.00 - Encounter for general adult medical examination without abnormal findings Phosphorus Today Z00.00 - Encounter for general adult medical examination without abnormal findings CT head/brain wo IV con Today I10 - Essential (primary) hypertension Complete Blood Count Auto Diff Today Z00.00 - Encounter for general adult medical examination without abnormal findings Comprehensive [place]. Panel Fast Today Z00.00 - Encounter for general adult medi ok examination without abnormal findings Erythrocyte Sedimentation Rate Today Z00.00 - Encounter for general adult medical examination without abnormal findings C Reactive Protein Today Z00.00 - Encounter for general adult medical examination without abnormal findings Hemoglobin A1c Today Z00.00 - Encounter for general adult medical examination without abnormal findings Lipid Panel Today Z00.00 - Encounter for general adult medical examination without abnormal findings Liver Panel Today Z00.00 - Encounter for general adult medical examination without abnormal findings Vitamin B12 and Folate Today Z00.00 - Encounter for general adult medical examination without abnormal findings US carotid duplex BI Today R42 - Dizziness and giddiness Referrals Cologuard Test Z12.11 - Encounter for screening for malignant neoplasm of colon, Z12.12 - Encounter for screening for malignant neoplasm of rectum Medications: New valsartan 40 mg PO DAILY 90 tabs 0RF Discontinued cefuroxime axetil Discontinued Reason: Patient no longer taking 500 mg PO BID 7 days 14 tabs 0RF sulfamethoxazole-trimethoprim 800-160 mg (Bactrim DS) Discontinued Reason: Patient Completed Course 1 tab PO BID 5 days 10 tabs 0RF Patient Instructions: Patient Instructions - Continue taking your prescribed medications, including the new Valsartan dose, as directed. - Monitor your blood pressure at home regularly and bring the readings to your next appointment. - Prepare for fasting blood work; ensure to avoid food and drink (except water) before the test. - Await contact regarding scheduling your carotid ultrasound and CT scan. - Follow up in one month to review your blood pressure management and any test results. - Maintain your current regimen of physical activity and dietary awareness. - Continue fish oil supplementation as a cholesterol management strategy. - Adjust your lifestyle to ensure anxiety management includes regular exercise and relaxation strategies, as tolerated. Scribe Plan - Not visible on output: History of Present Illness The patient is a 69-year-old female presenting with follow-up concerns regarding essential hypertension and episodic dizziness during activities requiring reclining. The dizziness, described by the patient as spinning, specifically occurs during medical or dental procedures and has been ongoing for eighteen months. Despite a history of previous experiences with vertigo, the patient expresses that the current dizziness feels distinct. She previously heeded a medical suggestion by a nurse to consider consulting a naturopathic physician due to the episodic nature of the dizziness. The increase in Diltiazem dosage from 120 mg to 180 mg indicates a recent attempt to stabilize hypertension. Home monitoring reports continued elevated blood pressure, albeit influenced by anxiety and lifestyle factors like caffeine intake. Past medication trials highlight challenges, as side effects have been significant, necessitating careful consideration of future antihypertensive strategies. The discussion about adding valsartan as an adjunctive treatment underpins the nuanced approach needed for effective management. The patient places emphasis on anxiety correlating with her thyroid condition, specifically Alissa's Thyroiditis, acknowledging its impact on overall blood pressure control. Her active approach includes dietary and exercise routines to mitigate weight gain, further contributing to her cardiovascular health focus. Routine examinations like colonoscopies have been deferred, despite historical compliance, due to a personal preference for waiting for potential procedural innovations. Additionally, medical history accounts for a previous urinary tract infection, managed through emergency care. Social History - Exercise: Engages in regular exercise, attributed to managing weight. - Diet: Conscious dietary choices, monitors diet to control weight and blood pressure. - Substance use: No mention of tobacco or alcohol; reports a single coffee daily. - Functional status: High functional status, remains active in daily routines. - Family medical history: Mother lived until 90, developed late-onset diabetes. Review of Systems - General: Reports episodes of intermittent dizziness specifically when reclined. - Cardiovascular: Denies chest pain or palpitations. - Respiratory: Denies shortness of breath during routine activities. - Neurological: Denies morning dizziness or when standing; reports former vertigo. - Genitourinary: Denies current urinary symptoms post-UTI management. Physical Exam Appearance: Alert. Oriented X3. No acute distress. Head: Normal external exam. Normocephalic. Atraumatic. Eyes: Pupils are equal, round, and reactive to light. Extraocular movements intact. Conjunctiva and sclera normal. Eyelids normal. Ears: External auditory canal normal. Tympanic membranes normal. Throat: Pharynx normal. Uvula midline. Moist mucous membranes. Neck: Normal inspection. Neck supple. Full range of motion. No adenopathy. Thyroid Normal. No meningeal signs. No neck mass noted. Cardiovascular: Normal heart rate and rhythm. Heart sound normal. No murmurs noted. Pulses normal throughout. Respiratory: No respiratory distress. Painless inspiration. Breath sounds normal. No wheezes/rales/rhonchi noted. Chest nontender. No accessory muscle usage noted or decreased air movement noted. Abdomen: Soft and nontender. Bowel sounds normal in all 4 quadrants. No distention noted. No organomegaly noted. No visible injury noted. Back: No costovertebral angle tenderness. Full range of motion noted. Skin: Skin warm and dry. Normal skin color. Normal skin turgor. No rashes/lesions/lacerations noted. Extremities: No lower extremity edema. Extremities exhibit normal range of motion. Extremities nontender. Neuro: Oriented X 3. No motor deficit. No sensory deficit. Reflexes normal. Patient has a normal steady gait. Normal neuro exam. No focal deficits or weakness is noted. Normal voice. Intermittent dizziness noted when laying back, not present at the time of examination.
[2025-02-27 09:39] VITALS: BP 152/90; PULSE 87; TEMP 36.6; O2SAT 98; BMI 24.7
--- OUTSIDE RECORDS SUMMARY | 2025-02-27 10:39 | XMS_ITS ---
Author Organization [facility] Address [address] [place] [address] Care Team Providers Care Screening Unit Registered Nurse Name Role Phone Manpreet (RETIRED) Hermilo WINSTON Primary Care Provid er Unavailable Hermilo Bey Unavailable [phone] REASON FOR VISIT Patient presents today for a screening colonoscopy Encounters Encounter Location Date Provider Diagnosis [facility] [address] [place], [place] [address] [place] [address] 02/20/2025 Hermilo Bey Plan Of Treatment No Information Progress Notes * SERAJAILENEABHISHEKMYLESJACINDAADOB:0 1955 (69 yo F)Acc No.[id number]:02/20/2025 Progress Notes Patient:?DORONLUCIANBATSHEVA BOOTH Provider:?Hermilo Bey MD :1955???Age:69 Y???Sex:Female D ate:02/20/2025 Address:[address] [place], [place] [address] Pcp:Hermilo Case (RETIRE D), Subjective: * Chief Complaints: * ???1. Patient presents today for a screening colonoscopy. * Medical History:? Objective: * Vitals:? Assessment: Plan: * Treatment: * * The named appointment provid er may or may not be the originator of this progress note, and it is not deemed complete until electronically signed by the appointment provider. Sign off status: Pending * Provider:?Hermilo Bey MD Date:? 025 Generated for Kennai justin/Deedee/eTransmitting on:?02/27/2025 10:39 AM EDT
--- OUTSIDE RECORDS SUMMARY | 2025-02-27 10:39 | XMS_ITS | Patient Health Record ---
Author Organization [facility] Address [address] [place] [address] Care Team Providers Care Grade And Center Marker Name Role Phone Manpreet (RETIRED) Hermilo WINSTON Primary Care Provid er Unavailable Hermilo Bey Unavailable [phone] Reason For Referral No Information Medications Medication SIG (Take, Route, Frequency, Duration) Notes Start Date End Date Status Aspirin 81 81 MG 1 tablet Orally as n eeded for pain Active dilTIAZem HCl ER Beads 120 MG TK 1 C PO QD Oral for 30 Act mariola Immunizations Vaccine Route Administration Date Status Comme nts Influenza Unknown 12/12/2019 Refused Social History Tobacco Use: Social History Observation Description Date Details (start date - stop date) Never Smoker NA - NA Tobacco Use/Smoking Question Answer Notes Patient is a nonsmoker Alcohol Screen Question Answer Notes Did you have a drink contain ing alcohol in the past year? Yes How often did you have a dri nk containing alcohol in the past year? 2 to 4 times a month (2 points) How many drinks did you have on a typical day when you were drinking in the past year? 1 or 2 drinks (0 point) How often did you have 6 or more drinks on one occasion in the past year? Never (0 point) Points 2 Interpretation Negative Section Notes: Nonsmoker; 1-2 glasses of wi ne occ. Problems Problem Type SNOMED Code ICD Code Onset Dates Problem Status W/U Status Risk Notes Problem [id number] Encounter for screening for malignant neoplasm of colon (Z12.11) Active confirmed Problem [id number] Preprocedural examination (Z01.818) Active confirmed Encounters Encounter Location Date Provider Diagnosis [facility] [address] [place] [address] [facility] [address] [place] [address] 05/22/2024 Hermilo Bey [facility] [address] [place] [address] 10/10/2024 Hermilo Maida Plan Of Treatment Future Test Test Name Order Date COLONOSCOPY 12/12/2019 Insurance Providers Payer Name Payer Address Payer Phone Subscriber Number Group Number Insured Name Patient Relationship to Insured Coverage Start Date Coverage End Date [facility] [address] [place] [phone] [id number] BATSHEVA SOTO Self - patient is the insured Medical (General) History Medical History History ICD Code Anxiety Hypertension Elevated Cholesterol Neg. screening colonoscopy in 11/2009 exc ept for small internal hemorrhoids Surgical History Surgery Date(Month/Year) D&C
--- OUTSIDE RECORDS SUMMARY | 2025-02-27 10:39 | XMS_ITS | Clinical Summary ---
Author Organization [facility] Address [address] [place] [address] Phone Care Team Providers Care Lobster Catcher Name Role Phone ManpreetHermilo mcleod Primary Care Provider [phone] Allergies Active Allergy Reactions Criticality Noted Date Comments Other 10/13/2022 Medications Coenzyme Q10 100 MG tablet Take 100 mg by mouth 1 (one) time each day Active LORazepam (ATIVAN) 1 MG tablet Take 1 mg by mouth 1 (one) time each day if needed for anxiety Active cholecalciferol (VITAMIN D-3 SUPER STRENGTH) 50 MCG (2000 UT) tablet Take 2,000 Units by mouth 1 (one) time each day Active dilTIAZem SR (CARDIZEM SR) 120 MG 12 hr capsule Take 120 mg by mouth 1 (one) time each day Active Active Problems Problem Noted Date Diagnosed Date Hypertension 10/14/2022 Essential (primary) hypertension 10/13/2022 Resolved Problems Problem Noted Date Diagnosed Date Resolved Date Anxiety 10/13/2022 10/13/2022 Uterine leiomyoma 10/13/2022 10/13/2022 Family History Medical History Relation Comments Heart disease Father Cancer Mother Metastatic lung cancer Relation Status Comments Father Mother Social History Tobacco Use Types Packs/Day Years Used Date Smoking Tobacco: Never Passive Smoke Exposure: Never Smokeless Tobacco: Never Tobacco Cessation:Counseling Given: No Alcohol Use Standard Drinks/Week Comments Yes 0 (1 standard drink = 0.6 oz pur e alcohol) Comments Unknown Sex and Gender Information Value Date Recorded Sex Assigned at Not on file Legal Sex Female 8:25 AM EDT Gender Identity Not on file Sexual Orientation Not on file Last Filed Vital Signs Vital Sign Reading Time Taken Comments Blood Pressure 144/88 10/14/2022 2:42 PM EST Pulse 93 10/14/2022 2:42 PM EST Temperature - - Respiratory Rate - - Oxygen Saturation 99% 10/14/2022 2:42 PM EST Inhaled Oxygen Concentration - - Weight 61.6 kg (135 lb 12.8 oz) 10/14/2022 2:42 PM EST Height - - Body Mass Index - - Plan of Treatment Health Maintenance Due Date Last Done Comments Breast Cancer Screening 1955 Pneumococcal Vaccine: 65+ Ye ars (1 of 2 - PCV) 1963 Colorectal Cancer Screening: Annual FOBT 2006 Colorectal Cancer Screening: Colonoscopy 2006 Colorectal Cancer Screening: Sigmoidoscopy 2006 Influenza Vaccine (Season Ended) 2025 Hepatitis B Vaccine Aged Out No longe r eligible based on patient's age to complete this topic Insurance Care Teams Lobster Catcher Relationship Specialty Start Date End Date Hermilo Case DO [address] [place] [address] PCP - General Internal Medicine 07/23/22
--- OUTSIDE RECORDS SUMMARY | 2025-02-27 10:39 | XMS_ITS | Continuity of Care Document ---
Author Organization [facility] [address] [place] [address] Phone [phone] Care Team Providers Care Tub Operator Name Role Phone Hermilo Case M.D. Care Team Information Recei harriet [phone] Problems Active Problems Provider Date Essential hypertension [...] Medications SIG Qnty Indications Ordering Provider Date Jdfchvyof0ia Tablets Take 1/2 To 1 Tablet By Mouth Once Daily as Needed Daphney Peter MD Diltiazem HCL ER [id number] Caps ER 24HR Take 1 Capsule By [...] LINN Vidal Plan of Treatment Future Appointment(s):* 03/13/2025 10:30 am - LINN Bahena at Main Office 11/08/2023 - LINN Bahena* E04.2 Nontoxic multinodular goiter * 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
--- OUTSIDE RECORDS SUMMARY | 2025-02-27 10:39 | XMS_ITS ---
Author Organization [facility] Address [address] [place] [address] Care Team Providers Care Sybase Developer Name Role Phone Manpreet (RETIRED) Hermilo WINSTON Primary Care Provid er Unavailable Hermilo Bey Unavailable [phone] REASON FOR VISIT Patient presents today for a screening colonoscopy Encounters Encounter Location Date Provider Diagnosis [facility] [address] [place] [address] [place] [address] 10/17/2024 Hermilo Bey Plan Of Treatment No Information Progress Notes * SERAJAILENEABHISHEKMYLESJACINDAADOB:0 1955 (69 yo F)Acc No.[id number]:10/17/2024 Progress Notes Patient:?BATSHEVA RUIZ Provider:?Hermilo Bey MD :1955???Age:69 Y???Sex:Female D ate:10/17/2024 Address:[address] [place], [place] [address] Pcp:Hermilo Case (RETIRE D), Subjective: * Chief [...] status: Pending * Provider:?Hermilo Bey MD Date:? 024 Generated for Kennai justin/Deedee/eTransmitting on:?02/27/2025 10:39 AM EDT
--- OUTSIDE RECORDS SUMMARY | 2025-02-27 10:39 | XMS_ITS ---
Author Organization [facility] Address [address] [place] [address] Care Team Providers Care Billiard Table Mechanic Name Role Phone Manpreet (RETIRED) Hermilo WINSTON Primary Care Provid er Unavailable Hermilo Bey Unavailable [phone] REASON FOR VISIT cancel appt Encounters Encounter Location Date Provider Diagnosis [facility] [address] [place] [address] 02/16/2025 Hermilo Bey Plan Of Treatment No Information Progress Notes * LEESA RUIZB:0 1955 (69 yo F)Acc No.[id number]:02/16/2025 Patient:?BATSHEVA RUIZ :1955???Age:69 Y???Sex:Female Address:[facility] [place] [address] * * Date:?
== END 2025-02-27 10:15 | disposition home or self-care (01) ==
LOC: HO.HMCSH 09:27
PROVIDERS: PCP Internal Medicine; Visit Provider Physician Assistant Medical
DX: R42 Dizziness and giddiness (principal); I10 Essential (primary) hypertension; E06.3 Autoimmune thyroiditis; E55.9 Vitamin D deficiency, unspecified; E78.00 Pure hypercholesterolemia, unspecified; F41.9 Anxiety disorder, unspecified; D25.9 Leiomyoma of uterus, unspecified

== ENCOUNTER → 2025-02-27 09:27 | Outpatient (BNVA) | payer MEDICARE, SELFPAY | PROVIDERS: PCP Internal Medicine; Visit Provider Physician Assistant Medical | DX: R42 Dizziness and giddiness (principal); I10 Essential (primary) hypertension; E06.3 Autoimmune thyroiditis; E55.9 Vitamin D deficiency, unspecified; E78.00 Pure hypercholesterolemia, unspecified; D25.9 Leiomyoma of uterus, unspecified; F41.9 Anxiety disorder, unspecified | CPT/HCPCS: 96127; 99202 ==

== ENCOUNTER 2025-03-08 07:04 | Outpatient (REF) | payer MEDICARE, SELFPAY ==
[2025-03-08 07:36] LABS: MANUAL DIFF FLAG NO
[2025-03-08 07:58] LABS: Basophils Absolute Auto 0.1 X10*3/uL (0.0-0.2); Basophils Percent Auto 1.1 % (0-2); Eosinophils Absolute Auto 0.2 X10*3/uL (0.0-0.4); Eosinophils Percent Auto 2.9 % (0-4); Hematocrit 43.3 % (37.0-47.0); Imm Gran Abs Auto 0.01 X10*3/uL (0.00-0.03); Imm Gran Pct Auto 0.2 % (0.0-0.4); Lymphocytes Absolute Auto 1.5 X10*3/uL (1.2-4.9); Lymphocytes Percent Auto 28.2 % (20-40); Mean Corpuscular HGB Conc 34.6 g/dl (31.0-35.0); Mean Corpuscular Hemoglobin 29.7 pg (27.0-33.0); Mean Corpuscular Volume 85.7 fL (80.0-98.0); Mean Platelet Volume 9.2 fL (9.4-12.3); Monocytes Absolute Auto 0.5 X10*3/uL (0.1-1.2); Monocytes Percent Auto 9.2 % (2-11); Neutrophils Absolute Auto 3.1 x10*3/uL (2.0-8.3); Neutrophils Percent Auto 58.4 % (45-73); Platelet Count 243 X10*3/uL (160-400); Red Blood Count 5.05 X10*6/uL (4.20-5.50); Red Cell Distribution Width 12.9 % (11.0-16.0); White Blood Count 5.2 X10*3/uL (4.8-10.8)
[2025-03-08 08:04] LABS: Estimated Average Glucose 111 mg/dL; Hemoglobin A1c % 5.5 % (<6.0); Total Hemoglobin (HGBA1C) 3973.8079 umol/L
[2025-03-08 08:25] LABS: Parathyroid Hormone Intact 61.1 pg/mL (8.7-77.1)
[2025-03-08 08:32] LABS: Alanine Aminotransferase 43 U/L (0-31); Albumin Level 4.6 g/dL (3.5-5.0); Alkaline Phosphatase 46 U/L (39-117); Anion Gap 13 (12-20); Aspartate Amino Transferase 33 U/L (5-31); Bilirubin Direct 0.2 mg/dL (0.0-0.5); Bilirubin Total 0.5 mg/dL (0.0-1.0); Blood Urea Nitrogen 14 mg/dL (9-16); C Reactive Protein 0.35 mg/dL (< or = 0.50); Calcium 9.5 mg/dL (8.4-10.2); Carbon Dioxide 23 mmol/L (22-29); Chloride 107 mmol/L (96-108); Cholesterol 257 mg/dL (<200); Estimated Glomerular Filt Rate > 60; Glucose Fasting 114 mg/dL (60-99); HDL Cholesterol 61 mg/dL (>40); LDL Cholesterol Calculated 165 mg/dL (<100); Magnesium 2.1 mg/dL (1.6-2.6); Phosphorus 3.8 mg/dL (2.7-4.5); Potassium 4.3 mmol/L (3.3-5.1); Sodium 139 mmol/L (135-145); Total Protein 7.8 g/dL (6.5-8.0); Triglycerides 157 mg/dL (<150)
[2025-03-08 08:47] LABS: Erythrocyte Sedimentation Rate 10 MM/HR (0-20); TSH reflex Free T4 2.34 uIU/mL (0.32-4.0); Vitamin D 25-OH Total 23.2 ng/mL (>30)
[2025-03-08 08:53] LABS: Folate 9.3 ng/mL (> or = 4.0); Vitamin B12 714 pg/mL (200-900)
== END 2025-03-08 07:05 | disposition home or self-care (01) ==
LOC: HO.LAB 07:04
PROVIDERS: PCP Physician Assistant Medical; Visit Provider Physician Assistant Medical
DX: Z00.00 Encounter for general adult medical examination without abnormal findings (principal); Z13.1 Encounter for screening for diabetes mellitus; Z13.6 Encounter for screening for cardiovascular disorders
CPT/HCPCS: 36415; 80053; 80061; 80076; 82248; 82306; 82607; 82746; 83036; 83735; 83970; 84100; 84443; 85025; 85652; 86140

== ENCOUNTER 2025-05-03 09:37 | Outpatient (REF) | payer MEDICARE, SELFPAY ==
--- NOTE | ~2025-05-03 | US_ITS ---
CLINICAL HISTORY: R42 - Dizziness and giddiness US Bilateral Carotid Duplex Comparison: None Findings: There is plaque within the carotid bulbs. Normal color doppler and waveforms morphology. Peak systolic velocities: Right CCA: 93 cm/s. Right ICA: 76 cm/s. ICA/CCA ratio: Normal. Right ECA: Unremarkable. Right vertebral artery flow antegrade. Left CCA: 76 cm/s. Left ICA: 126 cm/s. ICA/CCA ratio: Normal. Left ECA: Unremarkable. Left vertebral artery flow antegrade. IMPRESSION: No significant stenoses of the right ICA. 50-79% stenoses of the left ICA. This document has been electronically signed by: Velma Vargas MD on 05/03/2025 13:47:59
[2025-05-03 10:20] LABS: MANUAL DIFF FLAG NO
[2025-05-03 10:53] LABS: Basophils Percent Auto 0.9 % (0-2); Eosinophils Absolute Auto 0.1 X10*3/uL (0.0-0.4); Eosinophils Percent Auto 1.1 % (0-4); Hematocrit 41.8 % (37.0-47.0); Hemoglobin 14.3 g/dl (12.0-16.0); Imm Gran Abs Auto 0.02 X10*3/uL (0.00-0.03); Imm Gran Pct Auto 0.5 % (0.0-0.4); Lymphocytes Absolute Auto 1.5 X10*3/uL (1.2-4.9); Lymphocytes Percent Auto 35.2 % (20-40); Mean Corpuscular HGB Conc 34.2 g/dl (31.0-35.0); Mean Corpuscular Hemoglobin 29.9 pg (27.0-33.0); Mean Corpuscular Volume 87.3 fL (80.0-98.0); Mean Platelet Volume 9.3 fL (9.4-12.3); Monocytes Absolute Auto 0.5 X10*3/uL (0.1-1.2); Monocytes Percent Auto 10.3 % (2-11); Neutrophils Absolute Auto 2.3 x10*3/uL (2.0-8.3); Platelet Count 250 X10*3/uL (160-400); Red Blood Count 4.79 X10*6/uL (4.20-5.50); Red Cell Distribution Width 12.9 % (11.0-16.0); White Blood Count 4.4 X10*3/uL (4.8-10.8)
[2025-05-03 11:23] LABS: Alanine Aminotransferase 36 U/L (0-31); Albumin Level 4.9 g/dL (3.5-5.0); Alkaline Phosphatase 47 U/L (39-117); Anion Gap 12 (12-20); Aspartate Amino Transferase 30 U/L (5-31); Bilirubin Total 0.5 mg/dL (0.0-1.0); Blood Urea Nitrogen 15 mg/dL (9-16); Calcium 9.9 mg/dL (8.4-10.2); Carbon Dioxide 28 mmol/L (22-29); Chloride 104 mmol/L (96-108); Estimated Glomerular Filt Rate > 60; Glucose Random 108 mg/dL (60-115); Potassium 4.6 mmol/L (3.3-5.1); Sodium 139 mmol/L (135-145); Total Protein 7.8 g/dL (6.5-8.0)
[2025-05-04 21:34] LABS: Anti DNA DS Antibody 1 IU/mL; Antibody to SS-A Antigen <1.0 NEG AI (<1.0 NEG); Antibody to SS-B Antigen <1.0 NEG AI (<1.0 NEG)
[2025-05-09 10:09] LABS: Anti Nuclear Antibody Pattern Nuclear, Homogeneous; Anti Nuclear Antibody Screen POSITIVE (NEGATIVE)
== END 2025-05-03 09:38 | disposition home or self-care (01) ==
LOC: HO.US 09:37
PROVIDERS: Absent Provider Physician Assistant Medical; PCP Physician Assistant Medical; Visit Provider Physician Assistant Medical
DX: R42 Dizziness and giddiness (principal)
CPT/HCPCS: 36415; 80053; 85025; 86038; 86039; 86225; 86235; 93880

== ENCOUNTER → 2025-05-03 09:46 | Outpatient (BNV) | payer MEDICARE, SELFPAY | PROVIDERS: Absent Provider Physician Assistant Medical; PCP Physician Assistant Medical; Visit Provider Nuclear Medicine | DX: R42 Dizziness and giddiness (principal) | CPT/HCPCS: 93880 ==

== ENCOUNTER 2025-06-14 09:27 | Outpatient (AMB) | payer MEDICARE, SELFPAY ==
[2025-06-14 09:33] VITALS: BP 142/78; BMI 24.7
--- NOTE | 2025-06-14 09:33 | MHC.OFFVIS ---
Vital Signs 06/14/25 09:33 06/14/25 09:36 Height 5 ft 4.5 in Weight 146 lb BMI 24.7 BP 142/78 H 140/80 H Blood Pressure Location Lt brachial Rt brachial Position Sitting Sitting Intake Visit Reasons: ANESTHESIOLOGIST PHYSICIAN/HMG referral for carotid stenosis/occlusion Intake Note: ANESTHESIOLOGIST PHYSICIAN/PCP referral for carotid stenosis s/p carotid US 05/03/25. Pt states she gets dizziness when leaning back. Accompanied by: Self / Same As Patient Allergies hayfever Allergy (Uncoded 06/14/25 09:34) Runny Nose HPI HPI ANESTHESIOLOGIST PHYSICIAN/HMG referral for carotid stenosis/occlusion: Details: The patient is a 69-year-old female presenting for evaluation of carotid stenosis. She reports dizziness when lying on her back, particularly during dental visits and at the hairdresser, which has been ongoing for three years. These episodes are associated with nervousness, exacerbating her symptoms. The patient has hypertension, managed with medication, but experienced a rash after a dosage increase, leading her to adjust the medication. She has a family history of heart disease, with her father having of a heart attack at age 40. She denies smoking and diabetes but has hypercholesterolemia, managed through diet due to statin intolerance. She engages in daily exercise, walking her dog for an hour each morning. She now presents for evaluation regarding her carotids. [facility] Medical History Dizziness, nonspecific Carotid artery stenosis Alissa thyroiditis Uterine fibroid Mild hypercholesterolemia History of mammogram (~10/23/24) Hemorrhoids Vitamin D deficiency Anxiety Elevated cholesterol HTN (hypertension) Surgical History History of left cataract extraction Hx of dilation and curettage Hx of tonsillectomy Hx of colonoscopy (~2009) Social History Are you a primary home care consultant to a significant other at home: No Do you presently have visiting nurse or other home services: No Alcohol intake: current Alcohol intake frequency: 0-2 drinks per day Alcohol type: wine Patient Tobacco Use Status: Never used Tobacco Review of Systems Const All systems reviewed & are unremarkable except as noted in HPI and below Reports no additional complaints ENT Reports Normal hearing present Card Denies chest pain, Denies chest pain at rest, Denies chest pain with activity and Denies pedal edema Resp Denies cough GI Denies abdominal pain Musc Denies abnormal gait, Denies muscle cramps and Denies radiating pain into limb Skin/Breast Denies skin ulcer and Denies wounds Neuro Reports Normal hearing present and Denies abnormal gait Psych Reports no additional complaints Physical Exam Vital Signs: Last Vital Signs BP 140/80 H 06/14/25 09:36 BMI result Body Mass Index 24.7 Const General: cooperative, healthy appearing and comfortable Orientation/consciousness: oriented to person, oriented to place and oriented to time HEENT Head: Yes normal to inspection Neck Neck: Yes normal visual inspection Carotids: no bruits Chest Chest palpation & inspection: normal inspection of the chest Resp Effort & Inspection: normal respiratory effort and able to speak in complete sentences Auscultation: clear to auscultation bilaterally, no crackles, no rales, no rhonchi and no wheezes Cardio Rate: regular rate Rhythm: regular rhythm Heart sounds: S1 normal heart sound present and S2 normal heart sound present Bruits: no carotid bruits Peripheral pulses: Peripheral pulses 2+ throughout GI Inspection: Yes normal to inspection Skin Wounds: no wounds Hair: normal Neuro General: oriented to person, oriented to place and oriented to time Cranial nerves: Yes CN's II-XII intact bilaterally and Yes Normal hearing present Cognition (Neuro): normal cognition Motor exam (neuro): 5/5 motor strength present throughout Extrem Other: venous exam: No significant superficial varicosities or spider telangiectasias, minimal edema General: No clubbing, No cyanosis and No edema Psych Appearance: grossly normal Mental Status: mental status grossly normal Speech and movement: Normal speech and movement present Results Reviewed Results Reviewed: Carotid testing dated 05/03/2025 demonstrates right-sided 0-49 left side 50-79 that being said peak systolic is only 126. I do believe it is a bit of an over read. Assessment & Plan Assessment & Plan (1) Carotid artery stenosis: Code(s): I65.29 - Occlusion and stenosis of unspecified carotid artery Category: Medical Qualifiers: Laterality: bilateral Qualified Code(s): I65.23 - Occlusion and stenosis of bilateral carotid arteries Plan: In short I do not believe that the carotids are the source of her symptoms.I discussed with the patient that her carotid stenosis is being monitored and that a follow-up ultrasound will be conducted in six months. We talked about her symptoms of orthostatic hypotension and the importance of discussing these with her drafter electromechanical for further evaluation. I emphasized the need to continue dietary management for her hypercholesterolemia and encouraged her to maintain her exercise routine, which is beneficial for her health. Plan Patient was informed and verbally consented to the use of an ambient scribe for clinic note documentation during this visit. Orders: Orders US carotid duplex BI 6 Months I65.23 - Occlusion and stenosis of bilateral carotid arteries Patient Instructions: - Schedule a follow-up carotid ultrasound in six months. - Discuss orthostatic hypotension symptoms with Dr. Grissom. - Continue dietary management for hypercholesterolemia. - Maintain current exercise routine. Coding Level of Care Code Est Pt Level 4 (33154) Complex EM visit Add On G2211 Diagnoses Bilateral carotid artery stenosis I65.23 Laterality: bilateral
[2025-06-14 09:36] VITALS: BP 140/80
--- OUTSIDE RECORDS SUMMARY | 2025-06-14 09:45 | XMS_ITS | Clinical Summary ---
Author Organization [facility] Address [address] [place] [address] Phone Care Team Providers Care Squeegee Operator Name Role Phone ManpreetHermilo mcleod Primary Care Provider Allergies Active Allergy Reactions Criticality Noted Date [...] Comments Breast Cancer Screening 1955 Pneumococcal Vaccine: 50+ Ye ars (1 of 2 - PCV) 1976 Colorectal Cancer Screening: Annual FOBT 2006 Colorectal Cancer Screening: Colonoscopy 2006 Colorectal Cancer Screening: Sigmoidoscopy 2006 Influenza Vaccine (#1) 2025 Hepatitis B Vaccine Aged Out No longe r eligible based on patient's age to complete this topic Insurance Care Teams Squeegee Operator Relationship Specialty Start Date End Date Hermilo Case DO [address] [place] [address] PCP - General Internal Medicine 07/23/22
--- OUTSIDE RECORDS SUMMARY | 2025-06-14 09:45 | XMS_ITS | Continuity of Care Document ---
Author Organization [facility] [address] [place] [address] Phone [phone] Care Team Providers Care Surgical Specialist Name Role Phone Hermilo Case M.D. Care Team Information Recei harriet [phone] Problems Active Problems Provider Date Essential hypertension LINN Bahena Onset: 11/08/2023 Hypercholesterolemia LINN Bahena Onset: 1 01/09/2023 Vitamin D deficiency LINN Bahena Onset: 1 01/09/2023 Anxiety LINN Bahena Onset: 2022 Social History Type Date Description Comments Sex Female Sex Unknown Work Status Retired Tobacco Use Start: Unknown Never Smoked Cigarettes ETOH Use Rarely consumes alcohol Allergies and adverse reactions Description No Known Drug Allergies Medications Active Medications SIG Qnty Indications Ordering Provider Date Xpyhiuvxo7vh Tablets Take 1/2 To 1 Tablet By Mouth Once Daily as Needed Daphney Peter MD Diltiazem HCL ER [id number] Caps ER 24HR Take 1 Capsule By [...] Alissa's thyroiditis LINN Vidal Plan of Treatment No Information Available Functional Status Description No Information Available Mental Status Description No Information Available Referrals Description No Information Available
== END 2025-06-14 10:05 | disposition home or self-care (01) ==
LOC: HO.HVS 09:28
PROVIDERS: PCP Physician Assistant Medical; Visit Provider Surgery Vascular Surgery
DX: I65.23 Occlusion and stenosis of bilateral carotid arteries (principal)
CPT/HCPCS: 99214; G2211

== ENCOUNTER → 2025-06-14 09:27 | Outpatient (BNVA) | payer MEDICARE, SELFPAY | PROVIDERS: PCP Physician Assistant Medical; Visit Provider Surgery Vascular Surgery | DX: I65.23 Occlusion and stenosis of bilateral carotid arteries (principal) | CPT/HCPCS: 99212 ==

== ENCOUNTER 2025-07-17 08:22 | Outpatient (AMB) | payer MEDICARE, SELFPAY ==
--- NOTE | 2025-07-17 08:25 | MHC.OFFVIS ---
Vital Signs 07/17/25 08:26 Height 5 ft 4 in Weight 145 lb BMI 24.9 BP 150/68 H Blood Pressure Location Lt brachial Position Sitting Pulse 72 Pulse Source Pulse Oximeter Intake Visit Reasons: SAMPLE PROCESSOR/Garcia/HTN Allergies hayfever Allergy (Uncoded 06/14/25 09:34) Runny Nose Medication List - Last Reconciled 07/17/25 by Jonn Grissom MD diltiazem HCl CD 180 mg PO DAILY lorazepam 0.5 - 1 tabs PO DAILY valsartan 20 mg PO DAILY HPI Comments Details: The patient is a 69-year-old female presenting with concerns regarding blood pressure management and medication adjustments. The patient has a history of hypertension, which has been difficult to manage due to medication adjustments and side effects. She was previously on diltiazem, with dose increase by her previous physician, Dr. Case, due to elevated blood pressure readings during office visits. She gets dizziness when she is trying to rest her head back and because of that she is avoiding certain positions that exacerbates symptoms. Otherwise, no angina or shortness of breath or other cardiac concerns. No previous coronary disease or myocardial infarction. The patient has a history of psychological stress, which she attributes to past family issues, but she reports that this has improved over time. [facility] Medical History (Updated 07/17/25 @ 09:18 by Jonn Grissom MD) Dizziness, nonspecific Carotid artery stenosis Alissa thyroiditis Uterine fibroid Mild hypercholesterolemia History of mammogram (~10/23/24) Hemorrhoids Vitamin D deficiency Anxiety Elevated cholesterol HTN (hypertension) Surgical History History of left cataract extraction Hx of dilation and curettage Hx of tonsillectomy Hx of colonoscopy (~2009) Family History (Updated 07/17/25 @ 08:33 by Delphine Quinones) Mother Lung cancer Father Heart attack Social History Are you a primary skin care technician to a significant other at home: No Do you presently have visiting nurse or other home services: No Alcohol intake: current Alcohol intake frequency: 0-2 drinks per day Alcohol type: wine Patient Tobacco Use Status: Never used Tobacco Review of Systems Const Denies weakness ENT Reports dizziness Card Denies chest pain, Denies chest pain with activity, Denies syncope, Denies rapid heart rate, Denies pedal edema, Denies edema, Denies leg edema, Denies lightheadedness, Denies palpitations, Denies dyspnea, Denies dyspnea on exertion and Denies orthopnea Resp Denies cough, Denies dyspnea and Denies dyspnea on exertion GI Denies hematochezia and Denies change in stool character Musc Denies abnormal gait, Denies muscle cramps, Denies muscle weakness, Denies numbness, Denies radiating pain into limb and Denies tingling Neuro Denies abnormal gait, Reports dizziness, Denies syncope, Denies numbness, Denies tingling and Denies weakness Endo Denies palpitations Physical Exam Vital Signs: Last Vital Signs Pulse 72 07/17/25 08:26 BP 150/68 H 07/17/25 08:26 BMI result Body Mass Index 24.9 Const General: comfortable and no acute distress Orientation/consciousness: patient oriented x3 HEENT Other: Unremarkable Head: Yes normal to inspection Neck Neck: Yes normal visual inspection Chest Chest palpation & inspection: normal inspection of the chest Resp Auscultation: clear to auscultation bilaterally Cardio Palpation: normal PMI Heart sounds: S1 normal heart sound present, S2 normal heart sound present, no gallops, no murmurs and no rubs GI Palpation (GI): Soft to palpation Back/Spine/Pelvis Other: unremarkable Skin General skin exam: no rashes or lesions noted Neuro General: patient oriented x3 Extrem General: Yes normal to inspection Psych Mental Status: mental status grossly normal Office Procedures EKG Details: EKG with underlying sinus rhythm at 66/Min; no ischemic changes; [place] [id number], Complete Assessment & Plan Assessment & Plan (1) Dizziness, nonspecific: Code(s): R42 - Dizziness and giddiness Category: Medical Plan: Unclear if it is all orthostatic hypotension or not. Obtain tilt-table test. If this is unremarkable, then consider ENT/physical therapy appointment to evaluate for vertigo. (2) HTN (hypertension): Code(s): I10 - Essential (primary) hypertension Category: Medical Plan: Stop diltiazem. Increase dose of valsartan. Obtain echocardiogram for any significant left ventricular hypertrophy or diastolic dysfunction. (3) Elevated cholesterol: Code(s): E78.00 - Pure hypercholesterolemia, unspecified Category: Medical Plan: Elevated lipids and we will need to address this subsequently. She prefers not too many changes at the same time. (4) Carotid artery stenosis: Code(s): I65.29 - Occlusion and stenosis of unspecified carotid artery Category: Medical Qualifiers: Laterality: bilateral Qualified Code(s): I65.23 - Occlusion and stenosis of bilateral carotid arteries Plan: Per carotid ultrasound, 50-79% stenosis in the left ICA. Nothing significant in the right side. Has seen vascular surgery and plan is to just routinely monitor. Not felt to be the etiology for her dizziness. Plan Discussion Notes I discussed with the patient the need to discontinue diltiazem due to its ineffectiveness in managing blood pressure and the plan to adjust valsartan dosage to 80 mg daily. We also talked about arranging a vtilt table test to investigate the orthostatic hypotension and the necessity of a heart ultrasound to check cardiac function. Patient was informed and verbally consented to the use of an ambient scribe for clinic note documentation during this visit. Orders: Orders CA echo transthoracic complete Today I10 - Essential (primary) hypertension ECG Tilt Table Test Today R42 - Dizziness and giddiness Medications: New valsartan 80 mg PO DAILY 30 tabs 5RF Discontinued diltiazem HCl CD Discontinued Reason: Doctor's Order 180 mg PO DAILY 90 caps 1RF Patient Instructions: - Stop taking Diltiazem immediately. - Start taking Valsartan 80 mg once daily as prescribed. - Attend the Tilt table test to assess blood pressure changes. - Follow up for a heart ultrasound as planned. Coding Level of Care Code New Pt Level 4 (42262) Complex EM visit Add On G2211 Diagnoses Dizziness, nonspecific R42 HTN (hypertension) I10 Elevated cholesterol E78.00 Bilateral carotid artery stenosis I65.23 Laterality: bilateral CPT Codes EKG - CPT: 56654-Ogoixeqzpywnquldc, Complete ([id number])
[2025-07-17 08:26] VITALS: BP 150/68; PULSE 72; BMI 24.9
--- OUTSIDE RECORDS SUMMARY | 2025-07-17 09:04 | XMS_ITS | Encounter Summary ---
Author Organization [facility] Address [address] [place] [address] Phone Care Team Providers Care Ab Initio Etl Developer Name Role Phone Hermilo Morales MD Primary Care Provider [phone] Encounter Details Date Type Department Care Team (Latest Contact Info) Description 09/17/2022 Transcribe Orders Virtual Department [address] [place] [address] Hermilo Morales MD [address] [place] [address] [address] [place] [address] [email or web address] Dizziness and giddiness (Primary Dx); Maxillary sinusitis, unspecified chronicity Social History Tobacco Use Types Packs/Day Years Used Date Smoking Tobacco: Never Assessed Comments Unknown Sex and Gender Information Value Date Recorded Sex Assigned at Not on file Legal Sex Female 9:53 PM EDT Gender Identity Not on file Sexual Orientation Not on file documented as of this encounter Plan of Treatment Not on file documented as of this encounter Visit Diagnoses Diagnosis Dizziness and giddiness- Primary Maxillary sinusitis, unspecified chronicity documented in this encounter Care Teams Ab Initio Etl Developer Relationship Specialty Start Date End Date Hermilo Morales MD PCP - General Otolaryngology 09/17/22 documented as of this encounter Additional Source Comments The information contained in this document represents components of the legal health record. It is not the complete legal health record.[facility]
--- OUTSIDE RECORDS SUMMARY | 2025-07-17 09:04 | XMS_ITS | Clinical Summary ---
Author Organization [facility] Address [address] [place] [address] Phone Care Team Providers Care Fish Skinning Machine Feeder Name Role Phone ManpreetHermilo mcleod Primary Care [...] to complete this topic Insurance Care Teams Fish Skinning Machine Feeder Relationship Specialty Start Date End Date Hermilo Case DO [address] [place] [address] PCP - General Internal Medicine 07/23/22
--- OUTSIDE RECORDS SUMMARY | 2025-07-17 09:04 | XMS_ITS ---
Continuity of Care Document (CCD) Created on: July 17, 2025 Leona Escobar External Reference #: [id number] : [id number] Sex: Female Author Organization [facility] [address] [facility] [address] [place] [address] Phone [phone] Care Team Providers Care Knobber Name Role Phone Hermilo Case M.D. Care Team Information Recei harriet [phone] Problems Active Problems Provider Date Essential hypertension [...] Medications SIG Qnty Indications Ordering Provider Date [id number] Tablets Take 1/2 To 1 Tablet By Mouth Once Daily as Needed Daphney Peter MD Diltiazem HCL ER [id number] Caps ER 24HR Take 1 Capsule By [...]
== END 2025-07-17 09:23 | disposition home or self-care (01) ==
LOC: HO.HCS 08:23
PROVIDERS: PCP Physician Assistant Medical; Visit Provider Internal Medicine
DX: R42 Dizziness and giddiness (principal); I10 Essential (primary) hypertension; E78.00 Pure hypercholesterolemia, unspecified; I65.23 Occlusion and stenosis of bilateral carotid arteries
CPT/HCPCS: 93010; 99204; G2211

== ENCOUNTER → 2025-07-17 08:22 | Outpatient (BNVA) | payer MEDICARE, SELFPAY | PROVIDERS: PCP Physician Assistant Medical; Visit Provider Internal Medicine | DX: I65.23 Occlusion and stenosis of bilateral carotid arteries (principal); I10 Essential (primary) hypertension; E78.00 Pure hypercholesterolemia, unspecified; R42 Dizziness and giddiness | CPT/HCPCS: 93005; 99202 ==

== ENCOUNTER 2025-08-21 08:41 | Outpatient (AMB) | payer MEDICARE, SELFPAY ==
--- NOTE | 2025-08-21 08:48 | A.OFFVIS_ITS ---
Intake Visit Reasons: 6 month Allergies hayfever Allergy (Uncoded 08/21/25 08:54) Runny Nose Medication List - Last Reconciled 08/21/25 by Mallory Whitehead CNP lorazepam 0.5 mg (1/2 x 1 mg) PO BID PRN 30 days valsartan 80 mg PO DAILY HPI Comments Details: She was doing okay. No recurrence of vertigo. She saw vascular surgery in 05/2025 for carotid stenosis on carotid duplex and was determined carotids are unlikely source of symptoms with f/u study in 6 months. She saw cardiology in 06/2025, BP medication adjusted, and planning for tilt table test. She did not get dizzy last time she went to hairdresser and put head back. Her feel feel stiff at times, especially after working in the garden or when she first wakes up, and has rash on lower legs that was biopsied by dermatology and referred to [facility]. Walking dog every day for about 60 minutes. No falls. No numbness/tingling or pain in feet or lower legs. Ongoing anxiety, especially whenever she has to leave the house, does not like driving for long periods of time or driving on highways. Lorazepam helps with anxiety. Gets some occasional shaking in hands or legs when nervous or anxious. No significant headaches. Sleep was okay. Previously had some lightheaded dizziness if she leans backward too fast like when at dentist or hairdresser. Anxious and nervous.?Hearing tests were normal. Following with endocrinology for thryoid nodules. Anxiety was better with medication. Internal shaking and trembling has subsided. Her daughter has been clean for 2+ yrs. She gets stiffness in her muscles that comes and goes. She feels some mid back pain and stiffness. She says she feels hot all the time and was shaky and is menopausal. She says she's had some thyroid tests done. Her estrogen level was apparently normal. Brain MRI in 2001 was completely normal.? [facility] Medical History (Updated 08/21/25 @ 08:50 by Mallory Whitehead CNP) Dizziness, nonspecific Carotid artery stenosis Alissa thyroiditis Uterine fibroid Mild hypercholesterolemia History of mammogram (~10/23/24) Hemorrhoids Vitamin D deficiency Anxiety Elevated cholesterol HTN (hypertension) Surgical History History of left cataract extraction Hx of dilation and curettage Hx of tonsillectomy Hx of colonoscopy (~2009) Family History (Updated 07/17/25 @ 08:33 by Delphine Quinones) Mother Lung cancer Father Heart attack Social History Are you a primary before and after school daycare worker to a significant other at home: No Do you presently have visiting nurse or other home services: No Alcohol intake: current Alcohol intake frequency: 0-2 drinks per day Alcohol type: wine Patient Tobacco Use Status: Never used Tobacco Review of Systems Const Denies chills, Denies daytime sleepiness, Reports difficulty sleeping, Denies fatigue, Denies fever(s), Denies frequent falls, Denies headache(s), Denies increased appetite, Denies poor appetite, Denies snoring, Denies weakness, Denies weight gain and Denies weight loss Eyes Denies loss of vision ENT Denies vertigo, Denies dizziness, Denies headache(s) and Denies neck pain Card Denies chest pain at rest, Denies chest pain with activity, Denies syncope, Denies leg edema, Denies palpitations, Denies dyspnea and Denies dyspnea on exertion Resp Denies cough, Denies dyspnea, Denies dyspnea on exertion and Denies snoring GI Denies abdominal pain, Denies constipation, Denies heartburn, Denies diarrhea and Denies nausea Denies urinary frequency, Denies urinary incontinence and Denies urinary urgency Musc Denies abnormal gait, Denies back pain, Denies myalgias, Denies arthralgias, Denies neck pain, Denies numbness and Denies tingling Neuro Denies abnormal gait, Denies vertigo, Denies dizziness, Denies syncope, Denies frequent falls, Denies headache(s), Denies lack of coordination, Denies loss of vision, Denies memory loss, Denies numbness, Denies Other visual disturbances, Denies restless legs, Denies seizure-like activity, Denies tingling, Denies paresthesias, Denies tremor(s) and Denies weakness Psych Reports anxiety, Denies depression, Denies auditory hallucinations, Denies memory loss and Denies visual hallucinations Endo Denies fatigue and Denies palpitations Physical Exam Const Other: General Appearance:? normal, in no acute distress. Heart:? S1, S2 normal, no murmurs. Lungs:? clear anteriorly and posteriorly. Musculoskeletal:? normal. Extremities:? no edema. Psych:? alert, oriented, cognitive function intact, cooperative with exam. Neuro Other: Abnormal Neurological Findings:?none.? Mental Status: alert and oriented X 3. Normal attention, orientation, memory, and affect. Cranial Nerves: Pupils are equal, round, and reactive to light. External ocular muscles are intact. Visual rojas are full, no ptosis. Face is symmetrical, no facial weakness or droop. Facial sensations are normal. Tongue protrudes in midline. Palate elevates symmetrically. Shoulder shrugging is normal Motor Examination: Normal muscle tone, bulk and strength. No atrophy or fascicul ations. No drift of the extended upper extremities. DTR 2+. Plantars are flexor. Sensory Exam: Normal light touch, temperature, pinprick, vibration, and joint- position sensations. Rhomberg sign is absent. Coordination: No ataxia. No titubation. Gait Exam: Within normal limits. Cerebellar Signs: Glfajy-eb-xpil is okay. Extrapyramidal System: No tremor, rigidity with normal facial expressions. No bradykinesia. No bradyphrenia. Normal arm swing and posture. No propulsion or retropulsion. Speech: Normal. Results Reviewed Results Reviewed: [place] [address] Ultrasound Report Signed Patient: Leona Escobar MR#: [id number] : 1955 Acct:[id number] Age/Sex: 69 / F ADM Date: 05/03/25 Loc: HO.US Attending Dr: Svetlana Garcia PA-C Ordering Physician: Svetlana Garcia PA-C Date of Service: 05/03/25 Procedure(s): US carotid duplex BI Accession Number(s): [id number] cc: Svetlana Garcia PA-C~ CLINICAL HISTORY: R42 - Dizziness and giddiness US Bilateral Carotid Duplex Comparison: None Findings: There is plaque within the carotid bulbs. Normal color doppler and waveforms morphology. Peak systolic velocities: Right CCA: 93 cm/s. Right ICA: 76 cm/s. ICA/CCA ratio: Normal. Right ECA: Unremarkable. Right vertebral artery flow antegrade. Left CCA: 76 cm/s. Left ICA: 126 cm/s. ICA/CCA ratio: Normal. Left ECA: Unremarkable. Left vertebral artery flow antegrade. IMPRESSION: No significant stenoses of the right ICA. 50-79% stenoses of the left ICA. 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 EMG evidence minimal distal denervation consistent with neuropathy. Assessment & Plan Assessment & Plan (1) Anxiety: Code(s): F41.9 - Anxiety disorder, unspecified Category: Medical Plan: Continue lorazepam 1mg 1/2 tablet twice a day #30 for 30 days. NCV/EMG results from 2011 reviewed, discussed option for NCV/EMG, declining at this time. (2) Benign positional vertigo: Code(s): H81.10 - Benign paroxysmal vertigo, unspecified ear Category: Medical Qualifiers: Laterality: unspecified laterality Qualified Code(s): H81.10 - Benign paroxysmal vertigo, unspecified ear Plan: No recurrence of vertigo. US carotid duplex results reviewed. She was referred to vascular surgery by PCP, where it was determined carotids are unlikely source of symptoms and will have f/u study in 6 months. She saw cardiology in 06/2025, BP medication adjusted, and planning for tilt table test at [facility]. Coding Level of Care Code Est Pt Level 4 (57266) Diagnoses Anxiety F41.9 Benign paroxysmal positional vertigo, unspecified laterality H81.10 Laterality: unspecified laterality
--- OUTSIDE RECORDS SUMMARY | 2025-08-21 09:43 | XMS_ITS | Clinical Summary ---
Author Organization [facility] Address [address] [place] [address] Phone Care Team Providers Care Supervisor Refractory Products Name Role Phone Unavailable Primary Care Provider Unavailabl e Social History Tobacco Use Types Packs/Day Years Used Date Smoking Tobacco: Never Assessed Comments Unknown Sex and Gender Information Value Date Recorded Sex Assigned at Not on file Legal Sex Female 2:52 PM EDT Gender Identity Not on file Sexual Orientation Not on file Plan of Treatment Upcoming Encounters Date Type Department Care Team (Late st Contact Info) Description 10/16/2025 2:30 PM EST Appointment [facility] Xray [address] [place] [address] Health Maintenance Due Date Last Done Comments Breast Cancer Screening 1955 DTaP,Tdap,and Td Vaccines (1 - Tdap) 1976 Pneumococcal Vaccine: 50+ Ye ars (1 of 1 - PCV) 2007 Zoster Vaccines (1 of 2) 2007 Depression Screening 11/29/2024 Colorectal Cancer Screening: Colonoscopy 07/17/2025 Falls Risk Assessment 07/17/2025 Hepatitis C Screening 07/17/2025 Osteoporosis Screening (Bone Density Screening) 07/17/2025 Social Influencers of Health Screening 07/17/2025 COVID-19 Vaccine ( - 2023-2 5 season) 2025 Influenza Vaccine (#1) 2025 RSV Immunization Adult Patie nts (1 - 1-dose 75+ series) 2032 HIB Vaccines Aged Out No longer eligi ble based on patient's age to complete this topic HPV Vaccines Aged Out No longer eligi ble based on patient's age to complete this topic Hepatitis A Vaccines Aged Out No long er eligible based on patient's age to complete this topic Hepatitis B Vaccines Aged Out No long er eligible based on patient's age to complete this topic IPV Vaccines Aged Out No longer eligi ble based on patient's age to complete this topic MMR Vaccines Aged Out No longer eligi ble based on patient's age to complete this topic Meningococcal ACWY Vaccine Aged Out N o longer eligible based on patient's age to complete this topic Meningococcal B Vaccine Aged Out No l onger eligible based on patient's age to complete this topic RSV Immunization Patients Un carolyn 20 months Aged Out No longer eligible b ased on patient's age to complete this topic Varicella Vaccines Aged Out No longer eligible based on patient's age to complete this topic Insurance [employer]
--- OUTSIDE RECORDS SUMMARY | 2025-08-21 09:44 | XMS_ITS | Clinical Summary ---
Author Organization [facility] Address [address] [place], [place] [id number] Phone Care Team Providers Care Relish Blender Name Role Phone Hermilo Morales MD Primary Care Provider [phone] Social History Tobacco Use Types Packs/Day Years Used Date Smoking Tobacco: Never Assessed Education Answer Date Recorded Are you interested in more education? Not on stephan e 03/26/2023 Are you concerned about learning? Not on file 03/26/2023 No 03/26/2023 No 03/26/2023 Digital Access Answer Date Recorded No 04/26/2023 No 04/26/2023 Reliable internet access at home? Not on file 04/26/2023 Device with a working camera? Not on file Comments Unknown Sex and Gender Information Value Date Recorded Sex Assigned at Not on file Legal Sex Female 9:53 PM EDT Gender Identity Not on file Sexual Orientation Not on file Last Filed Vital Signs Vital Sign Reading Time Taken Comments Blood Pressure 146/90 03/07/2013 10:37 AM EDT Pulse - - Temperature - - Respiratory Rate - - Oxygen Saturation - - Inhaled Oxygen Concentration - - Weight 61.2 kg (135 lb) 10/11/2022 9:01 AM EST Height 160 cm (5' 3 ) 10/11/2022 9:01 AM EST Body Mass Index 23.91 10/11/2022 9:01 AM EST Plan of Treatment Not on file Medical Devices Not on file Insurance [employer] HMO REPLACEMENT MEDICARE PART A & B [employer] HMO REPLACEMENT MEDICARE PART A & B MEDICARE PART A & B MEDICARE HMO REPLACEMENT MEDICARE PART A & B MEDICARE PART A & B [employer] HMO REPLACEMENT MEDICARE PART A & [place] [address] [place] [address] MEDICARE HMO REPLACEMENT MEDICARE PART A & B [facility] MEDICARE HMO REPLACEMENT MEDICARE PART A & B MEDICARE HMO REPLACEMENT MEDICARE PART A & B Care Teams Relish Blender Relationship Specialty Start Date End Date Hermilo Morales MD [email or web address] PCP - General Otolaryngology 09/17/22 Additional Source Comments The information contained in this document represents components of the legal health record. It is not the complete legal health record.[facility]
--- OUTSIDE RECORDS SUMMARY | 2025-08-21 09:44 | XMS_ITS | Encounter Summary ---
Author Organization [facility] Address [address] [place] [address] Phone Care Team Providers Care Telephoto Engineer Name Role Phone Hermilo Morales MD Primary Care Provider [phone] Encounter Details Date Type Department Care Team (Latest Contact Info) Description 09/17/2022 Transcribe Orders Virtual Department [address] [place] [address] Hermilo Morales MD [address] [place] [address] [address] [place] [address] [email or web address] Dizziness and giddiness (Primary Dx); Maxillary [...] chronicity documented in this encounter Care Teams Telephoto Engineer Relationship Specialty Start Date End Date Hermilo Morales MD [email or web address] PCP - General Otolaryngology 09/17/22 documented as of this encounter Additional Source Comments The information contained in this document represents components of the legal health record. It is not the complete legal health record.[facility]
--- OUTSIDE RECORDS SUMMARY | 2025-08-21 09:44 | XMS_ITS | Clinical Summary ---
Author Organization [facility] Address [address] [place] [address] Phone Care Team Providers Care Beef Breaker Name Role Phone ManpreetHerimlo mcleod Primary Care Provider Allergies Active Allergy [...] to complete this topic Insurance Care Teams Beef Breaker Relationship Specialty Start Date End Date Hermilo Case DO [address] [place] [address] PCP - General Internal Medicine 07/23/22
== END 2025-08-21 09:19 | disposition home or self-care (01) ==
LOC: HO.HSM 08:42
PROVIDERS: PCP Internal Medicine; Referring Provider Internal Medicine; Visit Provider Registered Nurse
DX: F41.9 Anxiety disorder, unspecified (principal); H81.10 Benign paroxysmal vertigo, unspecified ear
CPT/HCPCS: 99214

== ENCOUNTER → 2025-08-21 08:41 | Outpatient (BNVA) | payer MEDICARE, SELFPAY | PROVIDERS: PCP Internal Medicine; Referring Provider Internal Medicine; Visit Provider Registered Nurse | DX: H81.10 Benign paroxysmal vertigo, unspecified ear (principal); F41.9 Anxiety disorder, unspecified | CPT/HCPCS: 99212 ==

== ENCOUNTER → 2025-08-28 07:57 | Outpatient (REF) | payer MEDICARE, SELFPAY ==
--- NOTE | 2025-08-28 08:01 | CA_ITS ---
Transthoracic Echocardiogram Patient (Last, First, Middle): Leona Escobar H Gender: F Date of : 1955 Age: 70 Procedure Date: 08/28/2025 Procedure Type: Transthoracic Echocardiogram Location: OP Height: 160.02 cm Weight: 66.23 kg BSA: 1.69 m2 Heart Rate: 79 bpm BP: 148 / 68 mmHg Blow Mold Operator: SB Referring MD: Jonn Grissom MD Symptoms: I10 - Essential (primary) hypertension Study Quality: Adequate ECG Rhythm: Sinus Conclusions: - The left ventricular systolic function is normal. The calculated ejection fraction is 62% by biplane method. - No obvious valvular pathology seen on this study. Findings Left Ventricle Normal left ventricular cavity size. The left ventricular systolic function is normal. The calculated ejection fraction is 62% by biplane method. There is no evidence of regional wall motion abnormalities. Evidence suggests grade I (mild) diastolic dysfunction. There is mild septal asymmetric hypertrophy. Right Ventricle Normal right ventricular cavity size and systolic function. Atria Both atria are normal in size. Aortic Valve The aortic valve structure and function is likely normal. There is no aortic valve stenosis. Trace to mild aortic regurgitation. Mitral Valve The mitral valve appears normal. There is trace mitral valve regurgitation. There is no mitral valve stenosis. Pulmonic Valve The pulmonic valve is likely normal. Tricuspid Valve Normal tricuspid valve structure. There is no tricuspid valve regurgitation. Tricuspid regurgitation envelope is inadequate for calculation of right ventricular systolic pressure. Great Vessels Top normal ascending aortic size at 3.6 cm. Venous The inferior vena cava is normal in size and collapses greater than 50% with inspiration. Pericardium/Pleural There is no evidence of pericardial effusion. Prior Study Comparison No significant change compared to prior study dated: 02/24/2018. Recommendations, Care & Conclusions No obvious valvular pathology seen on this study. Measurements 2D Linear Measurements IVSd: 1.14 0.6-0.9/0.6-1.0 cm LVIDd: 4.56 3.9-5.3/4.2-5.9 cm LVIDd Index: 2.70 2.4-3.2/2.2-3.1 cm/m2 LVIDs: 3.10 2.0-3.6 cm LVPWd: 0.78 0.7-1.1 cm LA Diam: 3.50 2.7-3.8/3.0-4.0 cm LAIDs Index: 2.07 1.5-2.3 cm/m2 LV Mass: 184.11 67-162/88-224 g LV Mass Index: 108.94 43-95/49-115 g/m2 LVOT Diam: 2.20 3.0+(-)1.3 cm 2D Systolic Function EF 4C: 61.20 >55% EF 2C: 64.80 >55% EF BiP: 62.40 >55% Mitral Valve MV Pk E: 0.50 MV PK A: 0.83 MV Decel Time: 190.00 E/A: 0.60 E'Lateral: 5.00 E'Medial: 3.70 E/E' Med: 13.50 E/E' Lat: 10.00 PHT: 56.00 MVA PHT: 3.93 Decel [place]: 2.64 Aortic Valve AoV Pk Samuel: 1.07 AoV Pk Grad: 5.00 MARGARITA: 2.73 LVOT LVOT Pk Samuel: 0.85 LVOT Mn Samuel: 0.57 LVOT VTI: 0.18 LVOT Pk Grad: 3.00 LVOT Mn Grad: 2.00 LVOT Diam: 2.20 LVOT Area: 3.80 Diastolic Function MV Pk E: 0.50 MV Pk A: 0.83 E/A: 0.60 E'Medial: 3.70 E/E' Med: 13.50 E' Laterial: 5.00 E/E' Lat: 10.00 Right Ventricle TAPSE (mm): 18.20 TVS' Samuel: 11.90 Tricuspid Valve RA Press: 8.00 Great Vessels Aorta Sinus of Valsalva: 3.80 2.0-3.5 cm Ao Asc: 3.60 2.1-3.4 cm Pulmonary Veins Pulm Vein S/D 1.60 Pulmonary Valve PV Pk Samuel: 0.80 Peak PV Grad: 3.00 Updated in Other Vendor System with Status of Final Jonn Grissom MD electronically signed on 08/30/2025 10:46:18 AM with status of Final
--- OUTSIDE RECORDS SUMMARY | 2025-08-28 08:04 | XMS_ITS | Clinical Summary ---
Author Organization [facility] Address [address] [place] [address] Phone Care Team Providers Care Front Office Associate Name Role Phone Unavailable Primary Care Provider [...] Info) Description 10/16/2025 2:30 PM EST Appointment [facility] Xray [address] [place] [address] Health Maintenance Due Date Last [...]
--- OUTSIDE RECORDS SUMMARY | 2025-08-28 08:05 | XMS_ITS | Encounter Summary ---
Author Organization [facility] Address [address] [place] [address] Phone Care Team Providers Care Cell Room Operator Name Role Phone Hermilo Morales MD Primary Care Provider [phone] Encounter Details Date Type Department Care Team (Latest Contact Info) Description 09/17/2022 Transcribe Orders Virtual Department [address] [place] [address] Hermilo Morales MD [address] [place] [address] [address] [place] [address] [email or web address] Dizziness and giddiness (Primary Dx); Maxillary [...] chronicity documented in this encounter Care Teams Cell Room Operator Relationship Specialty Start Date End Date Hermilo Morales MD PCP - General Otolaryngology 09/17/22 documented as of this encounter Additional Source Comments The information contained in this document represents components of the legal health record. It is not the complete legal health record.[facility]
--- OUTSIDE RECORDS SUMMARY | 2025-08-28 08:05 | XMS_ITS | Clinical Summary ---
Author Organization [facility] Address [address] [place], [place] [id number] Phone Care Team Providers Care Cuff Setter Name Role Phone Hermilo Morales MD Primary Care Provider [phone] Social History Tobacco Use Types Packs/Day Years [...] HMO REPLACEMENT MEDICARE PART A & [place] [address] [place] [address] MEDICARE HMO REPLACEMENT MEDICARE PART A & B [facility] MEDICARE HMO REPLACEMENT MEDICARE PART A & B MEDICARE HMO REPLACEMENT MEDICARE PART A & B Care Teams Cuff Setter Relationship Specialty Start Date End Date Hermilo Morales MD [email or web address] PCP - General Otolaryngology 09/17/22 Additional Source Comments The information contained in this document represents components of the legal health record. It is not the complete legal health record.[facility]
--- OUTSIDE RECORDS SUMMARY | 2025-08-28 08:05 | XMS_ITS | Continuity of Care Document ---
Author Organization [facility] [address] [place] [address] Phone [phone] Care Team Providers Care Council Member Name Role Phone Hermilo Case M.D. Care Team Information Recei harriet [phone] Problems Active Problems Provider Date Essential hypertension [...] Medications SIG Qnty Indications Ordering Provider Date Nboojrehs1io Tablets Take 1/2 To 1 Tablet By Mouth Once Daily as Needed Daphney Peter MD Diltiazem HCL ER [id number] Caps ER 24HR Take 1 Capsule By [...]
--- OUTSIDE RECORDS SUMMARY | 2025-08-28 08:05 | XMS_ITS | Clinical Summary ---
Author Organization [facility] Address [address] [place] [address] Phone Care Team Providers Care Senior Web Developer Name Role Phone ManpreetHermilo mcleod Primary Care [...] to complete this topic Insurance Care Teams Senior Web Developer Relationship Specialty Start Date End Date Hermilo Case DO [address] [place] [address] PCP - General Internal Medicine 07/23/22
== END ==
LOC: HO.CARD 07:57
PROVIDERS: PCP Internal Medicine; Visit Provider Internal Medicine
DX: I10 Essential (primary) hypertension (principal)
CPT/HCPCS: 93306

== ENCOUNTER → 2025-08-28 08:01 | Outpatient (BNV) | payer MEDICARE, SELFPAY | PROVIDERS: PCP Internal Medicine; Visit Provider Internal Medicine | DX: I42.2 Other hypertrophic cardiomyopathy (principal) | CPT/HCPCS: 93306 ==

== ENCOUNTER 2025-10-29 08:22 | Outpatient (REF) | payer MEDICARE, SELFPAY ==
--- NOTE | ~2025-10-29 | MM_ITS ---
EXAMINATION: MM SCREENING DIGITAL BREAST TOMOSYNTHESIS, BILATERAL CLINICAL INFORMATION: Screening. Asymptomatic. COMPARISON: Mammography: Comparison is made with available priors TECHNIQUE: Digital breast mammography with tomosynthesis is performed in both the craniocaudal and mediolateral oblique views along with computer-aided detection (CAD). FINDINGS: The breasts are heterogeneously dense, which may obscure small masses. There are no significant masses, abnormal calcifications, or other abnormalities. MM/MM tomosynthesis screening BI IMPRESSION: No mammographic evidence of malignancy. ASSESSMENT: BI-RADS Category 1: Negative RECOMMENDATION: Routine annual mammography screening. 1 year F/U This examination should not preclude the clinical evaluation of a suspicious palpable abnormality. This patient's information was entered into a reminder system with a target due date for their next mammogram. Electronically signed by: Arely Payton DO 10/29/2025 09:37 AM [facility]
--- OUTSIDE RECORDS SUMMARY | 2025-10-29 08:36 | XMS_ITS ---
Continuity of Care Document (CCD) Created on: October 29, 2025 Leona Escobar External Reference #: [id number] : [id number] Sex: Female Author Organization [facility] [address] [place] [address] Phone [phone] Care Team Providers Care Sanforizer Name Role Phone Hermilo Case M.D. Care Team Information Recei harriet [phone] Problems Active Problems Provider Date Essential hypertension [...] Medications SIG Qnty Indications Ordering Provider Date Ugdlcrrdw9tr Tablets Take 1/2 To 1 Tablet By Mouth Once Daily as Needed Daphney Peter MD Diltiazem HCL ER [id number] Caps ER 24HR Take 1 Capsule By [...]
--- OUTSIDE RECORDS SUMMARY | 2025-10-29 08:36 | XMS_ITS | Encounter Summary ---
Author Organization [facility] Address [address] [place] [address] Phone Care Team Providers Care Flat Locker Name Role Phone Hermilo Morales MD Primary Care Provider [phone] Encounter Details Date Type Department Care Team (Latest Contact Info) Description 09/17/2022 Transcribe Orders Virtual Department [address] [place] [address] Hermilo Morales MD [address] [place] [address] [address] [place] [address] [email or web address] Dizziness and giddiness (Primary Dx); Maxillary [...] chronicity documented in this encounter Care Teams Flat Locker Relationship Specialty Start Date End Date Hermilo Morales MD PCP - General Otolaryngology 09/17/22 documented as of this encounter Additional Source Comments The information contained in this document represents components of the legal health record. It is not the complete legal health record.[facility]
--- OUTSIDE RECORDS SUMMARY | 2025-10-29 08:36 | XMS_ITS | Clinical Summary ---
Author Organization [facility] Address [address] [place] [address] Phone Care Team Providers Care Taxi Truck Driver Name Role Phone ManpreetHermilo mcleod Primary Care Provider [phone] Allergies Active Allergy Reactions Criticality Noted Date [...] to complete this topic Insurance Care Teams Taxi Truck Driver Relationship Specialty Start Date End Date Hermilo Case DO [address] [place] [address] PCP - General Internal Medicine 07/23/22
--- OUTSIDE RECORDS SUMMARY | 2025-10-29 08:37 | XMS_ITS | Clinical Summary ---
Author Organization [facility] Address [address] [place], [place] [id number] Phone Care Team Providers Care Date Night Sitter Name Role Phone Hermilo Morales MD Primary Care Provider [phone] Social History Tobacco Use Types Packs/Day Years [...] HMO REPLACEMENT MEDICARE PART A & [place] [address] [place] [address] MEDICARE HMO REPLACEMENT MEDICARE PART A & B [facility] MEDICARE HMO REPLACEMENT MEDICARE PART A & B MEDICARE HMO REPLACEMENT MEDICARE PART A & B Care Teams Date Night Sitter Relationship Specialty Start Date End Date Hermilo Morales MD [email or web address] PCP - General Otolaryngology 09/17/22 Additional Source Comments The information contained in this document represents components of the legal health record. It is not the complete legal health record.[facility]
--- OUTSIDE RECORDS SUMMARY | 2025-10-29 08:37 | XMS_ITS | Clinical Summary ---
Author Organization [facility] Address [address] [place] [address] Phone Care Team Providers Care Monotype Keyboard Operator Name Role Phone Physician, Pcp Unknown Primary Care Provider Joya vailable Encounters Date Type Department Care Team Description 10/16/2025 2:30 PM EST - 10/16/2025 11:59 PM EST Hospital Encounter [facility] Xray [address] [place] [address] Dizziness and giddiness Discharge Disposition: Home or Self Care from Last 3 Months Social History Tobacco Use Types Packs/Day Years Used Date Smoking Tobacco: Never Assessed Comments Unknown Sex and Gender Information Value Date Recorded Sex Assigned at Not on file Legal Sex Female 2:52 PM EDT Gender Identity Not on file Sexual Orientation Not on file Plan of Treatment Health Maintenance Due Date Last Done Comments Breast Cancer Screening 1955 Colorectal Cancer Screening: Colonoscopy 1955 DTaP,Tdap,and Td Vaccines (1 - Tdap) 1976 Pneumococcal Vaccine: 50+ Ye ars (1 of 1 - PCV) 2007 Zoster Vaccines (1 of 2) 2007 Depression Screening 11/29/2024 Cholesterol Screening (Lipid Panel) 07/17/2025 Falls Risk Assessment 07/17/2025 Hepatitis C Screening 07/17/2025 Osteoporosis Screening (Bone Density Screening) 07/17/2025 Social Influencers of Health Screening 07/17/2025 COVID-19 Vaccine ( - 2024-2 6 season) 2025 Influenza Vaccine (#1) 2025 Hypertension/CHF/CAD Annual BMP Blood Test 10/16/2025 RSV Immunization Adult Patie nts (1 - [...] on patient's age to complete this topic Procedures Procedure Name Priority Date/Time Associated Diagnosis Comments TILT TABLE Routine 10/16/2025 2:53 PM EST Dizziness and giddiness from Last 3 Months Results * Tilt table (10/16/2025 2:53 PM EST) Anatomical Region Laterality Modality Radiographic Beckie ging Narrative 10/16/2025 3:40 PM EST Very dizzy when she initally went from sitting to lying down - she wasn't monitored at that time. She felt she needed to sit up and did feel better shortly after returning to sitting position. The second time she went to lay down she was asymptomatic. Tilt Table The patient was brought to lab in fasting state. Patient lied supine for 5 minutes for equilibrium. Baseline ECG showed sinus tachycardia. Baseline supine maximum BP: 199/107 mmHg Baseline supine maximum HR: 120 bpm Patient tilted to 70 degrees. Tilt maintained for 20 minutes. Minimum BP during tilt: 162/80 mmHg Maximum BP during tilt: 207/94 mmHg Minimum heart rate during tilt: 108 bpm Maximum heart rate during tilt: 118 bpm Rhythm during tilt: sinus tachycardia There was a clear orthostatic response not noted. Patient experienced a physiologic HR increase with tilt. Symptoms seen on tilt include: feels like heart is racing. pt very anxious at beginning of exam She did take BP med this am Conclusion: Negative tilt test. Jonn Grissom MD [facility] PRO CEDURES Final Result from Last 3 Months Insurance [employer] Care Teams Monotype Keyboard Operator Relationship Specialty Start Date End Date Physician, Pcp Unknown PCP - General 10/16/25
== END 2025-10-29 08:23 | disposition home or self-care (01) ==
LOC: HO.MAMMO 08:22
PROVIDERS: PCP Internal Medicine; Visit Provider Internal Medicine
DX: Z12.31 Encounter for screening mammogram for malignant neoplasm of breast (principal)
CPT/HCPCS: 77063; 77067

== ENCOUNTER → 2025-10-29 08:45 | Outpatient (BNV) | payer MEDICARE, SELFPAY | PROVIDERS: PCP Internal Medicine; Visit Provider Internal Medicine | DX: Z12.31 Encounter for screening mammogram for malignant neoplasm of breast (principal) | CPT/HCPCS: 77063; 77067 ==